=== PATIENT | female | born 1955 | race Caucasian/White ===

== ENCOUNTER 2025-03-24 09:26 | Outpatient (REF) | payer OTHER, SELFPAY ==
--- OUTSIDE RECORDS SUMMARY | 2025-03-19 08:30 | XMS_ITS | Encounter Summary ---
Author Organization [facility] Address [address] [place] [address] Care Team Providers Care Intelligence Officer Name Role Phone Evie Perez MD Primary Care Provider [phone] Reason for Referral * Imaging (Routine) - Pending Review Specialty Diagnoses / Procedures Referred By Contac t Referred To Contact Radiology Diagnoses PAD (peripheral artery disease) (CMS/[facility] V24) Procedures CT Angio Abdominal Aorta w Runoff Gaston Bangura MD [address] [place] [address] Phone: tel: fax: [address] [address] Phone: tel: Referral ID Status Reason Start Date Expiration Date V isits Requested Visits Authorized [id number] Pending Review 03/19/2025 03/19/2026 1 1 Reason for Visit * Reason Comments Peripheral Vascular Disease Encounter Details Date Type Department Care Team (Late st Contact Info) Description 03/19/2025 8:30 AM EDT Office Visit Vascular Surgery - [facility] [address] [place] [id number] Gaston Bangura MD [address] [place] [id number] PAD (peripheral artery disease) (CMS/HCC V24) (Primary Dx) Social History Tobacco Use Types Packs/Day Years Used Date Smoking Tobacco: Every Day Cigarettes Last attempted to quit: 01/10/2022 Smokeless Tobacco: Never Tobacco Cessation:Ready to Q uit: Not Asked; Counseling Given: Not Answered Alcohol Use Standard Drinks/Week Comments Never 0 (1 standard drink = 0.6 oz pur e alcohol) Comments Unknown Sex and Gender Information Value Date Recorded Sex Assigned at Not on file Legal Sex Female 9:43 PM EST Gender Identity Not on file Sexual Orientation Not on file documented as of this encounter Last Filed Vital Signs Vital Sign Reading Time Taken Comments Blood Pressure 110/70 03/19/2025 8:21 AM EDT Pulse 72 03/19/2025 8:21 AM EDT Temperature - - Respiratory Rate 16 03/19/2025 8:21 AM EDT Oxygen Saturation - - Inhaled Oxygen Concentration - - Weight 64 kg (141 lb) 03/19/2025 8:21 AM EDT Height 165.1 cm (5' 5 ) 03/19/2025 8:21 AM EDT Body Mass Index 23.46 03/19/2025 8:21 AM EDT documented in this encounter Progress Notes * Bereket Franco [place] - 03/19/2025 8:30 AM EDT Images from the original note were not included. Serena Marielos Abraham Procedures: Vascular US duplex lower extremity arteries bilateral with ZAY Accession Number: [id number] Date of Study: 03/02/2025 Ordering Provider: Gaston Bangura MD Clinical Indications: peripheral vascular disease Reading Physicians Performing Staff Cardiology: Cecilia Herrera MD Tech: Gena Coburn Patient Information Patient Name Marielos Lyons Legal Sex Female (69 y.o.) Diagnosis Priority: Routine PAD (peripheral artery disease) ([facility] V24) [I73.9 (ICD-10-CM)] PACS Images Show images for Vascular US duplex lower extremity arteries bilateral with ZAY Performing Physician Performing Physician/Midlevel: None Interpretation Summary Show Result ComparisonRight Right EIA has mildly increased velocity without evidence of stenosis. Right IMAGING SERVICES DIRECTOR has 50 to 99% (close to 50%) stenosis. Right proximal SFA has 50 to 99% stenosis. Right distal SFA has increased lumen diameter above doesnot meet diagnosis of aneurysm. Triple vessel runoff in the right calf. Left ankle pressure and ankle-brachial index are mildly reduced. Right ZAY 0.96. Left Left EIA is occluded. Left proximal SFA has blunt flow. Left mid SFA is occluded. Left distal SFA has turbulent flow indicating stenosis. A fem-pop bypass graft is present. Proximal anastomosis has turbulent flow with elevated flow velocity, indicating hemodynamic significant stenosis. Bypass graft is occluded right after proximal anastomosis extending to mid segment. The distal segment has a small lumen with retrograde flow. The distal anastomosis has minimal flow. The proximal popliteal artery has 50 to 99% stenosis with blunt flow in the distal segment. Triple-vessel runoff in the left calf. Left ankle pressure and ankle-brachial index are moderately reduced. Left ZAY 0.59. Compared to previous study of 10/25/2023, left femoropopliteal graft is occluded. The findings was communicated to Dr. Bangura's office. Result History Order Result History Report Procedure Details A davenport scale, color and doppler analysis ultrasound was performed. During the study longitudinal and transverse views were obtained. Pulsed wave doppler was performed. Lower Extremity Arterial Findings Right Lower Arterial Duplex The distal external iliac artery has biphasic flow. The common femoral artery has biphasic flow. The profunda femoris artery has biphasic flow. The proximal superficial femoral artery has biphasic flow. The mid superficial femoral artery has biphasic flow. The distal superficial femoral artery has monophasic flow. The diameter increases from 0.62cm to 1.09cm in the distal superficial femoral artery just above the knee (1.21 x 1.38 x 1.09cm), and decreased down to 0.62cm in the proximal popliteal artery. The popliteal artery has biphasic flow. The anterior tibial artery has biphasic flow. The posterior tibial artery has biphasic flow. The mid peroneal artery has biphasic flow. Right Segmental Pressures Right BP not done due to sensor. Left Lower Arterial Duplex The distal external iliac artery has absent flow. The common femoral artery has monophasic flow at the bypass graft inflow. The profunda femoris artery has monophasic bidirectional flow (26.18cm/s) followed by monophasic turbulent flow(134.15cm/s). The proximal superficial femoral artery has monophasic flow just after the bifurcation followed by occlusion. The mid superficial femoral artery has absent flow. The distal superficial femoral artery has monophasic flow. The proximal popliteal artery is turbulent. The proximal popliteal artery has monophasic flow. The distal popliteal artery has monophasic flow. The anterior tibial artery has blunted monophasic flow. The posterior tibial artery has monophasic flow. The mid peroneal artery has blunted monophasic flow. Left Lower Bypass Graft There is a left femoral to popliteal graft present: proximal yaeaolmtqxv=111.3cm/s (monophasic turbulent flow) proximal= occluded mid= occluded distal= 7.5cm/s (blunted monophasic reversed flow followed by blunted bidirectional flow just before the distal anastomosis) distal anastomosis= 5.9cm/s (blunted monophasic reversed flow) Left Segmental Pressures Left BP= 127/48 Iliac Artery Measurements PSV Rt EIA Prox 220 cm/s Rt EIA Dist 188 cm/s Lt EIA Prox 0 cm/s Lt EIA Dist 0 cm/s Right Lower Arterial Measurements PSV IMAGING SERVICES DIRECTOR Prox 220 cm/s PFA 163 cm/s SFA Prox 339 cm/s SFA Mid 147 cm/s SFA Dist 94 cm/s Pop Prox 94 cm/s Pop Dist 127 cm/s SENIOR LICENSING MANAGER Prox 66 cm/s SENIOR LICENSING MANAGER Mid 62 cm/s SENIOR LICENSING MANAGER Dist 61 cm/s SAHARA Prox 56 cm/s SAHARA Mid 44 cm/s SAHARA Dist 39 cm/s Peroneal Mid 34 cm/s Left Lower Arterial Measurements PSV IMAGING SERVICES DIRECTOR Prox 19 cm/s PFA 134 cm/s SFA Prox 34 cm/s SFA Mid 0 cm/s SFA Dist 121 cm/s Pop Prox 155 cm/s Pop Dist 104 cm/s SENIOR LICENSING MANAGER Prox 19 cm/s SENIOR LICENSING MANAGER Mid 19 cm/s SENIOR LICENSING MANAGER Dist 21 cm/s SAHARA Prox 13 cm/s SAHARA Mid 10 cm/s SAHARA Dist 11 cm/s Peroneal Mid 9 cm/s Segmental Pressure Measurements Right Left Brachial BP 127 mmHg Post Tibial BP 122 mmHg 75 mmHg Dorsalis Pedis BP 117 mmHg 67 mmHg ZAY 0.96 0.59 All Reviewers List YOUNG Mayer on 03/03/2025 10:18 Signed at 1716 EDT * Gaston Bangura MD - 03/19/2025 8:30 AM EDT Images from the original note were not included. PATIENT: Marielos Lyons ENCOUNTER: 03/19/2025 EMRN: [id number] : 1955 PCP: Evie Perez MD CHIEF COMPLAINT: Peripheral Vascular Disease HPI: This is a 69 y.o. female who presents for follow-up of PAD. Vasacular history is 05/02/2022: RIGHT SFA/popliteal endarterectomy 02/07/22: LEFT external iliac artery stent graft, left iliofemoral endarterectomy with bovine pericardial patch angioplasty and left femoral to infrageniculate popliteal artery with reversed greater saphenous vein. 07/31/2023: LEFT iliofemoral bypass with 7 mm Dacron graft (for failed Left EIA stent) 09/04/2023: LEFT groin exploration and washout, exploratory laparotomy, explant of iliofemoral Dacron graft, repair of femoropopliteal vein graft bypass with bovine pericardial patch angioplasty, implant of antibiotic beads and omental flap for infected of Dacron left iliofemoral bypass graft. During her last procedure patient had small remant Dacron, well incorporated and unable to be explanted. She completed a long-term course of IV antibiotics. No growth of organisms on all cultures. All ulcers in her feet have healed. Patient reported significant lifestyle-limiting claudication in the left leg. However, no further revascularization was planned as she did not have critical limb ische ilya. Patient was managed conservatively and followed with imaging. Patient returns today to updated arterial duplex. See findings below.. Claudication develops after climbing 1 flight of stairs. She denies rest pain in her toes, ulcers, gangrene. Denies right leg claudication. Patient has no known history of CHF. Patient had a trial of cilostazol which he subsequently failed after developing diarrhea. Cilostazol discontinued. She was tobacco and nicotine free however she relapsed and is currently smoking 15 cigarettes/day. Patient is on aspirin and Xarelto 2.5 mg p.o. twice daily. She has had no complications related to aspirin and Xarelto. PAST MEDICAL HISTORY: (reviewed and unchanged) Problem List[1] PAST SURGICAL HISTORY: (reviewed and unchanged) Surgical History[2] MEDICATIONS: (reviewed, flow sheet updated) Medications Taking[3] SOCIAL HISTORY: Social History[4] FAMILY HISTORY: Family History[5] ALLERGIES: (reviewed, flow sheet updated) Allergies[6] ROS: GENERAL: No malaise, significant weight loss or fever NECK: No lumps, goiter, pain or significant neck swelling RESPIRATORY: No cough, wheezing or shortness of breath CARDIAC: No chest pain or palpitations GI: No abdominal discomfort MUSCULOSKELETAL: SEE HPI SKIN: No lesions, rash or itching NEURO: No persistent headache, syncope, seizures, weakness or numbness VASCULAR: SEE HPI PHYSICAL EXAM: Vitals: 03/19/25 0821 BP: 110/70 Pulse: 72 Resp: 16 Weight: 64 kg (141 lb) Height: 1.651 m (65 ) General: Alert and oriented x 3, no acute distress, well-nourished HEENT: Normocephalic atraumatic Neck: No JVD Chest: Respiratory effort normal Cardiac: Regular rate rhythm Abdomen: Soft, nontender, nondistended, Midline laparotomy surgical scar well- healed. Left flank retroperitoneal surgical scar well-healed. Extremities: -Right upper extremity: 2+ radial artery pulses palpable. -Left upper extremity: 2+ radial artery pulses palpable. -Right lower extremity: 2+ femoral artery pulse palpable. No palpable popliteal artery pulse. 1+ PTpulse palpable, No DP pulse palpable. No ulcers or gangrene. No edema. Right medial thigh surgical scar well-healed. No ulcers or gangrene. -Left lower extremity: No palpable femoral, DP or PT pulses palpable. No edema. Multiple surgical scars in the groin are healed. Medial calf incision is also well-healed. No ulcers or gangrene. Integumentary: No wounds Neuro: Grossly intact DIAGNOSTIC TESTING: SerenaMarielos Procedures: Vascular US duplex lower extremity arteries bilateral with ZAY Accession Number: [id number] Date of Study: 03/02/2025 Ordering Provider: Gaston Bangura MD Clinical Indications: peripheral vascular disease Reading Physicians Performing Staff Cardiology: Cecilia Herrera MD Tech: Gena Coburn Patient Information Patient Name Marielos Lyons Legal Sex Female (69 y.o.) Diagnosis Priority: Routine PAD (peripheral artery disease) ([facility] V24) [I73.9 (ICD-10-CM)] PACS Images Show images for Vascular US duplex lower extremity arteries bilateral with ZAY Performing Physician Performing Physician/Midlevel: None Interpretation Summary Show Result ComparisonRight Right EIA has mildly increased velocity without evidence of stenosis. Right IMAGING SERVICES DIRECTOR has 50 to 99% (close to 50%) stenosis. Right proximal SFA has 50 to 99% stenosis. Right distal SFA has increased lumen diameter above doesnot meet diagnosis of aneurysm. Triple vessel runoff in the right calf. Left ankle pressure and ankle-brachial index are mildly reduced. Right ZAY 0.96. Left Left EIA is occluded. Left proximal SFA has blunt flow. Left mid SFA is occluded. Left distal SFA has turbulent flow indicating stenosis. A fem-pop bypass graft is present. Proximal anastomosis has turbulent flow with elevated flow velocity, indicating hemodynamic significant stenosis. Bypass graft is occluded right after proximal anastomosis extending to mid segment. The distal segment has a small lumen with retrograde flow. The distal anastomosis has minimal flow. The proximal popliteal artery has 50 to 99% stenosis with blunt flow in the distal segment. Triple-vessel runoff in the left calf. Left ankle pressure and ankle-brachial index are moderately reduced. Left ZAY 0.59. Compared to previous study of 10/25/2023, left femoropopliteal graft is occluded. The findings was communicated to Dr. Bangura's office. Result History Order Result History Report Procedure Details A davenport scale, color and doppler analysis ultrasound was performed. During the study longitudinal and transverse views were obtained. Pulsed wave doppler was performed. Lower Extremity Arterial Findings Right Lower Arterial Duplex The distal external iliac artery has biphasic flow. The common femoral artery has biphasic flow. The profunda femoris artery has biphasic flow. The proximal superficial femoral artery has biphasic flow. The mid superficial femoral artery has biphasic flow. The distal superficial femoral artery has monophasic flow. The diameter increases from 0.62cm to 1.09cm in the distal superficial femoral artery just above the knee (1.21 x 1.38 x 1.09cm), and decreased down to 0.62cm in the proximal popliteal artery. The popliteal artery has biphasic flow. The anterior tibial artery has biphasic flow. The posterior tibial artery has biphasic flow. The mid peroneal artery has biphasic flow. Right Segmental Pressures Right BP not done due to sensor. Left Lower Arterial Duplex The distal external iliac artery has absent flow. The common femoral artery has monophasic flow at the bypass graft inflow. The profunda femoris artery has monophasic bidirectional flow (26.18cm/s) followed by monophasic turbulent flow(134.15cm/s). The proximal superficial femoral artery has monophasic flow just after the bifurcation followed by occlusion. The mid superficial femoral artery has absent flow. The distal superficial femoral artery has monophasic flow. The proximal popliteal artery is turbulent. The proximal popliteal artery has monophasic flow. The distal popliteal artery has monophasic flow. The anterior tibial artery has blunted monophasic flow. The posterior tibial artery has monophasic flow. The mid peroneal artery has blunted monophasic flow. Left Lower Bypass Graft There is a left femoral to popliteal graft present: proximal ttlzbrgrmdw=450.3cm/s (monophasic turbulent flow) proximal= occluded mid= occluded distal= 7.5cm/s (blunted monophasic reversed flow followed by blunted bidirectional flow just before the distal anastomosis) distal anastomosis= 5.9cm/s (blunted monophasic reversed flow) Left Segmental Pressures Left BP= 127/48 Iliac Artery Measurements PSV Rt EIA Prox 220 cm/s Rt EIA Dist 188 cm/s Lt EIA Prox 0 cm/s Lt EIA Dist 0 cm/s Right Lower Arterial Measurements PSV IMAGING SERVICES DIRECTOR Prox 220 cm/s PFA 163 cm/s SFA Prox 339 cm/s SFA Mid 147 cm/s SFA Dist 94 cm/s Pop Prox 94 cm/s Pop Dist 127 cm/s SENIOR LICENSING MANAGER Prox 66 cm/s SENIOR LICENSING MANAGER Mid 62 cm/s SENIOR LICENSING MANAGER Dist 61 cm/s SAHARA Prox 56 cm/s SAHARA Mid 44 cm/s SAHARA Dist 39 cm/s Peroneal Mid 34 cm/s Left Lower Arterial Measurements PSV IMAGING SERVICES DIRECTOR Prox 19 cm/s PFA 134 cm/s SFA Prox 34 cm/s SFA Mid 0 cm/s SFA Dist 121 cm/s Pop Prox 155 cm/s Pop Dist 104 cm/s SENIOR LICENSING MANAGER Prox 19 cm/s SENIOR LICENSING MANAGER Mid 19 cm/s SENIOR LICENSING MANAGER Dist 21 cm/s SAHARA Prox 13 cm/s SAHARA Mid 10 cm/s SAHARA Dist 11 cm/s Peroneal Mid 9 cm/s Segmental Pressure Measurements Right Left Brachial BP 127 mmHg Post Tibial BP 122 mmHg 75 mmHg Dorsalis Pedis BP 117 mmHg 67 mmHg ZAY 0.96 0.59 All Reviewers List YOUNG Mayer on 03/03/2025 10:18 Signed at 1716 [facility] Diagnostic Imaging Department [address] [place], [place] [id number] Patient: MARIELOS LYONS /Age/Sex: 1955 - 68 - F Unit#: [id number] Location/Status: SPDICAT/REG CLI Mnemonic/Ordering Site: CTAAORRUN/SPCT Ordering Physician: EMELINA MINA CT Aorta W Runoff Angiography - 12/25/23743 Report Status:Signed CT aorta and runoff angiography with IV contrast TECHNIQUE: Axial and reformatted images were performed of the abdomen and pelvis following administration of IV contrast.120cc of ISOVUE was administered IV for contrast enhanced images. The examination was performed during arterial phase of enhancement. CT examination was extended through the lower extremities bilaterally. DOSE: CTDIvol: 8.5/13.3mGy. Total exam DLP: 1919.8mGy-cm COMPARISON: CT abdomen and pelvis August 2023. CT aorta and runoff angiography April 2023 INDICATION: Peripheral arterial disease FINDINGS: Vessels: Atherosclerotic disease is noted throughout the abdominal aorta. No aneurysm. Celiac and SMA appear widely patent. NEHEMIAH is present. Plaque causes at least moderate stenosis at the origin of the left renal artery. Right renal arteryappears widely patent. Plaque with minimal stenosis is noted in the right common iliac and external iliac artery. Very short segment of dissection is noted in the distal right external iliac artery without significant stenosis. Previous examination in August showed an occluded left external iliac stent with a patent left common iliac graft that extended into the left groin. There is a small region of outpouching of contrast in the left common iliac artery that may represent a small pseudoaneurysm or small graft remnant. Previously described graft is no longer visualized. The left external iliac stent is again noted and appears occluded. Previous examination noted fluid surrounding the left external iliac graft that is no longer present. Right leg: Minimal stenosis in the right common femoral artery. Profundus is patent. Small region of moderate stenosis in the proximal SFA. At least mild stenosis is noted throughout much of the proximal and mid SFA. Distal portions of the vessel appear more patent consistent with prior endarterectomy changes. Popliteal artery is widely patent. Three-vessel runoff extends to the ankle. Left leg: Previously noted left external iliac graft extending into the left groin is no longer visualized. Minimal remnant contrast extends from the proximal SFA anteriorly that may represent minimal residualoutpouching of the patent graft. The left external iliac artery and common femoral artery are occluded. There is reconstituted flow in the distal common femoral artery via collateral vessels. The profundus is patent. Previously noted fluid collection in the anterior left thigh is no longer visualized. The kaw SFA appears occluded throughout its course. Collateral vessels are noted that provide reconstituted flow within the popliteal artery. Three-vessel flow extends to the ankle. CT abdomen and pelvis: Examination performed during arterial phase which limits evaluation of some organs. Liver: Decreased attenuation the liver suggesting at least mild fatty infiltration. Biliary: Gallbladder appears normal. No biliary dilatation. Pancreas: Pancreas appears within normal limits. No atrophy or ductal dilatation. Spleen: Spleen appears normal. Adrenals: The adrenal glands appear symmetric and normal bilaterally. Kidneys: The kidneys appear normal. No evidence of hydronephrosis. Retroperitoneum: No abnormal lymphadenopathy. Bowel: Bowel appears within normal limits. Normal appendix. Mesentery: Mesentery appears normal. No ascites. Pelvis: Pelvis appears within normal limits. No abnormal lymphadenopathy. Abdominal wall/bones: No significant hernia. Degenerative changes of the spine.. Lung Bases: Minimal basilar atelectasis. IMPRESSION: 1. Significant atherosclerotic disease is noted bilaterally and is detailed fully above. 2. Occlusion of the left SFA with apparent removal of the previously noted left external iliac graft as detailed above. 3. Mild fatty infiltration of the liver. Dictating Physician: NAGA TARIQ MD Electronically Signed by: NAGA TARIQ MD Dic Date/Time: 12/26/23 1822 Sign date/Time: 12/26/23 [id number] Arterial duplex, [facility], 10/25/2023: - Right lower extremity: ZAY 0.87. Biphasic waveforms throughout the right lower extremity except in the proximal SFA which is monophasic waveforms suggestive of a severe stenosis within the right SFA. Three-vessel runoff. - Left lower extremity: ZAY 0.68. Iliac artery was not well-visualized. Monophasic waveforms throughout the entire left lower extremity. Left femoropopliteal bypass was patent and has biphasic waveforms at the proximal anastomosis and monophasic waveforms throughout the remainder of the bypass. Three-vessel runoff. I independently reviewed the studies along with the images. ASSESSMENT: 1. PAD (peripheral artery disease) ([facility] V24) PLAN: 69 y.o. female smoker with type 2 diabetes who unfortunately developed delayed infection of her left iliofemoral DVT on the bypass graft. Patient underwent left groin exploration and washout, exploratory laparotomy, explant of iliofemoral Dacron graft, repair of femoropopliteal vein graft bypass with bovine pericardial patch angioplasty, implant of antibiotic beads and omental flap on 09/04/2023. Swab cultures were negative from the operation despite having intraoperative findings of white milkyfluid. She completed her antibiotic course and remains asymptomatic from infection. Patient is also status post right SFA/popliteal endarterectomy. She currently does not clearly haverest pain in her right foot at night and has lifestyle limiting left calf claudication. She does not have any critical limb ischemia. Patient failed trial of cilostazol. Arterial duplex was reviewed with the patient at length. She does however warrant a repeat CTA aorta with bilateral lower extremity runoff at this time given potential rest pain within her right foot. She should follow-up with CTA in 3 months. She should continue aspirin and Xarelto 2.5 mg p.o. twice daily indefinitely. Patient is smoking three quarters of a pack a day. Smoke cessation was discussed at length. Patientunderstands consequences including limb loss with continued smoking. Patient will pick a quit date and get rid of all her cigarettes. She has a plan for quitting again. We discussed the natural pathophysiology of PAD. Patient to follow-up sooner if symptoms progress and left lower extremity or less likely the right lower extremity. I spent 40 minutes in an encounter with this patient, including time spent with patient, chart review, reviewing diagnostic studies, and documentation. [1] Patient Active Problem List Diagnosis Hyperlipidemia Hypertension Ocular headache Type 2 diabetes mellitus ([facility] V24, [facility] V28) PAD (peripheral artery disease) ([facility] V24) Vascular device, implant, or graft infection or inflammation, subsequent encounter Lump on neck Erythrocytosis Adhesive capsulitis of right shoulder associated with type 2 diabetes mellitus ([facility] V24, [facility] V28) Nontraumatic complete tear of right rotator cuff [2] Past Surgical History: Procedure Laterality Date AORTA - BILATERAL FEMORAL ARTERY BYPASS GRAFT PROCEDURE:FEMORAL ARTERY - POPLITEAL ARTERY BYPASS GRAFT SECTION PROCEDURE: SECTION SECTION N/A PROCEDURE: NV DELIVERY ONLY; COMMENT: X2 COLONOSCOPY N/A PROCEDURE: HISTORICAL COLONOSCOPY OTHER SURGICAL HISTORY N/A PROCEDURE: NV ARTHROSCOPY TEMPOROMANDIBULAR JOINT SURGICAL OTHER SURGICAL HISTORY 01/02/2022 PROCEDURE: NV SLCTV CATHJ 3RD+ ORD SLCTV ABDL PEL/LXTR BRNCH OTHER SURGICAL HISTORY 01/02/2022 PROCEDURE: X-RAY ABDOMINAL AORTA, LEG ARTERIES OTHER SURGICAL HISTORY 01/02/2022 PROCEDURE: X-RAY EXAM OF ARM/LEG ARTERIES OTHER SURGICAL HISTORY 01/02/2022 PROCEDURE: ULTRASOUND GUIDANCE FOR VASCULAR AC OTHER SURGICAL HISTORY Left 02/07/2022 PROCEDURE: NV BYPASS W/VEIN FEMORAL-POPLITEAL OTHER SURGICAL HISTORY Left 02/07/2022 PROCEDURE: NV REVSC OPN/PRQ ILIAC ART W/STNT PLMT & ANGIOPLSTY OTHER SURGICAL HISTORY Left 02/07/2022 PROCEDURE: NV TEAEC W/WO PATCH GRAFT ILIOFEMORAL OTHER SURGICAL HISTORY 03/27/2022 PROCEDURE: NV REVASCULARIZATION ILIAC ARTERY ANGIOP 1ST VSL OTHER SURGICAL HISTORY 03/27/2022 PROCEDURE: NV REVSC OPN/PRG FEM/POP W/ANGIOPLASTY UNI OTHER SURGICAL HISTORY 03/27/2022 PROCEDURE: ULTRASOUND GUIDANCE FOR VASCULAR AC OTHER SURGICAL HISTORY Right 05/02/2022 PROCEDURE: NV TEAEC W/GRAFT POPLITEAL ARTERY OTHER SURGICAL HISTORY 07/30/2023 PROCEDURE: NV SLCTV CATHJ EA 1ST ORD ABDL PEL/LXTR ART BRNCH OTHER SURGICAL HISTORY 07/30/2023 PROCEDURE: X-RAY EXAM OF ARM/LEG ARTERY; COMMENT: X2 OTHER SURGICAL HISTORY 07/30/2023 PROCEDURE: ULTRASOUND GUIDANCE FOR VASCULAR AC OTHER SURGICAL HISTORY Left 07/31/2023 PROCEDURE: NV BYP OTH/THN VEIN ILIOFEMORAL OTHER SURGICAL HISTORY 07/31/2023 PROCEDURE: NV ROPRTJ > 1 MO AFTER ORIGINAL OPRATION OTHER SURGICAL HISTORY 09/04/2023 PROCEDURE: NV EXCISION INFECTED GRAFT ABDOMEN OTHER SURGICAL HISTORY 09/04/2023 PROCEDURE: NV RPR BLOOD VESSEL DIRECT LOWER EXTREMITY OTHER SURGICAL HISTORY 09/04/2023 PROCEDURE: NV OMENTAL FLAP INTRA-ABDOMINAL OTHER SURGICAL HISTORY 09/04/2023 PROCEDURE: NV INSERTION DRUG DELIVERY IMPLANT [3] Outpatient Medications Marked as Taking for the 03/19/25 encounter (Office Visit) with Gaston Bangura MD Medication Sig Dispense Refill aspirin 81 mg EC tablet TAKE 1 TABLET BY MOUTH EVERY DAY 90 tablet 3 blood-glucose meter,continuous (Dexcom G7 Locks Inspector) misc 1 Device by Does not apply route continuous1 Device by Does not apply route continuous1 Device by Does not apply route continuous 3 each 11 blood-glucose sensor (Dexcom G7 Sensor) device Box = Kit = EA USE DIRECTED CHANGE SENSOR EVERY 10 DAYS 3 each 11 glucose blood test strip 1 Strip by In Vitro route 2 times daily glucose blood test strip 1 Strip by In Vitro route as needed HumaLOG KwikPen Insulin 100 unit/mL injection pen BEFORE MEALS DIRECTED PER SLIDING SCALE THREE TIMES A DAY, MAX UP TO 25 UNITS DAILY. 15 mL 1 insulin lispro 100 unit/mL injection Before meals as directed per sliding scale three times a day, max up to 25 units daily pen needle, diabetic (BD Amy 2nd Gen Pen Needle) 32 gauge x 5/32 needle To inject insulin upto 2 times a day 100 each 3 Rybelsus 14 mg tablet TAKE 1 TABLET BY MOUTH EVERY DAY 90 tablet 1 Xarelto 2.5 mg tablet TAKE 1 TABLET BY MOUTH TWICE DAILY 180 tablet 3 [4] Social History Tobacco Use Smoking status: Every Day Current packs/day: 0.00 Types: Cigarettes Last attempt to quit: 01/10/2022 Years since quittin.1 Smokeless tobacco: Never Substance Use Topics Alcohol use: Never Drug use: Never [5] Family History Problem Relation Name Age of Onset Diabetes Mother Diabetes Sister [6] No Known Allergies documented in this encounter Plan of Treatment Upcoming Encounters Date Type Department Care Team (Late st Contact Info) Description 03/31/2025 9:00 AM EST Office Visit Endocrinology - [place] [address] [place] [phone] Ines Orourke MD [address] [place] [address] 06/17/2025 9:15 AM EST Office Visit [facility] Hematology Oncology [address] [place] [phone] Ward Skinner MD [address] [place] [address] 06/18/2025 8:30 AM EST Office Visit Vascular Surgery [facility] [address] [place] [phone] Gaston Bangura MD [address] [place] [phone] Scheduled Orders Name Type Priority Associated Diagnoses Orde r Schedule CT Angio Abdominal Aorta w Runoff Imaging Routine PAD (peripheral artery disease) ([facility] V24) Expected: 05/19/2025, Expires: 03/19/2026 BUN Lab Routine PAD (peripheral artery disease) ([facility] V24) Expected: 03/19/2025, Expires: 03/19/2026 Creatinine Lab Routine PAD (peripheral artery disease) ([facility] V24) Expected: 03/19/2025, Expires: 03/19/2026 documented as of this encounter Visit Diagnoses Diagnosis PAD (peripheral artery disease) ([facility] V24)- Primary Unspecified peripheral vascular disease documented in this encounter Care Teams Intelligence Officer Relationship Specialty Start Date End Date Evie Perez MD [address] [place] [address] PCP - General 12/12/23 documented as of this encounter
--- OUTSIDE RECORDS SUMMARY | 2025-03-24 10:59 | XMS_ITS | Encounter Summary ---
Author Organization [facility] Address [address] [place] [address] Care Team Providers Care Branding Machine Operator Name Role Phone Evie Perez MD Primary Care Provider Encounter Details Date Type Department Care Team ([facility] Contact Info) Description 03/23/2025 Results Follow-Up Adult Medicine [facility] [address] [place], [place] [phone] Evie Perez MD [address] [place] [address] Social History Tobacco Use Types Packs/Day Years Used Date Smoking Tobacco: Every Day Cigarettes Last attempted to quit: 01/10/2022 Smokeless Tobacco: Never Alcohol Use Standard Drinks/Week Comments Never 0 (1 standard drink = 0.6 oz pur e alcohol) Comments Unknown Sex and Gender Information Value Date Recorded Sex Assigned at Not on file Legal Sex Female 9:43 PM EST Gender Identity Not on file Sexual Orientation Not on file documented as of this encounter Plan of Treatment Upcoming Encounters Date Type Department Care Team ([facility] Contact Info) Description 03/31/2025 9:00 AM EST Office Visit [facility] [address], [place] [phone] Ines Orourke MD [address] [place] [phone] 06/17/2025 9:15 AM EST Office Visit [facility] Hematology Oncology [address] [place] [phone] Ward Skinner MD [address] [place] [address] 06/18/2025 8:30 AM EST Office Visit Vascular Surgery - [place] [address] [place] [phone] Gaston Bangura MD [address] [place] [phone] documented as of this encounter Visit Diagnoses Not on filedocumented in this encounter Care Teams Branding Machine Operator Relationship Specialty Start Date End Date Evie Perez MD [address] [place] [address] PCP - General 12/12/23 documented as of this encounter
--- OUTSIDE RECORDS SUMMARY | 2025-03-24 10:59 | XMS_ITS | Clinical Summary ---
Author Organization [facility] Address [address] [place] [address] Care Team Providers Care Customer Orders Clerk Name Role Phone Zari Mora DO Primary Care P rovider Allergies No known active allergies Medications Medication Sig Dispensed Refills Start Date End Date Status clopidogrel (PLAVIX) 75 MG tablet Take 1 tablet (75 mg total) by mouth daily. 0 04/05/2022 Active glipiZIDE (GLUCOTROL) tablet 10 mg Take 1 tablet (10 mg total) by mouth. 0 Active Semaglutide (RYBELSUS PO) Take by mouth. 0 Active ibuprofen 200 MG tablet Take 1 tablet (200 mg total) by mouth every 6 (six) hours as needed for pain. 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 04/17/2022 Nontraumatic complete tear of right rotator cuff 04/17/2022 Impingement syndrome of right shoulder 2 Family History Medical History Relation Name Comments Diabetes Mother Diabetes Sister Relation Name Status Comments Mother Sister Social History Tobacco Use Types Packs/Day Years Used Date Smoking Tobacco: Former Cigarettes Q uit: 01/10/2022 Smokeless Tobacco: Never Tobacco Cessation:Counseling Given: Not Answered Alcohol Use Standard Drinks/Week Comments Not Currently 0 (1 standard drink = 0.6 oz pur e alcohol) Sex and Gender Information Value Date Recorded Sex Assigned at Not on file Gender Identity Not on file Sexual Orientation Not on file Job Start Date Occupation Industry Not on file Not on file Not on file Last Filed Vital Signs Vital Sign Reading Time Taken Comments Blood Pressure - - Pulse - - Temperature - - Respiratory Rate - - Oxygen Saturation - - Inhaled Oxygen Concentration - - Weight 73 kg (161 lb) 06/04/2022 1:33 PM EST Height 167.6 cm (5' 6 ) 06/04/2022 1:33 PM EST Body Mass Index 25.99 06/04/2022 1:33 PM EST Plan of Treatment Health Maintenance Due Date Last Done Comments Hepatitis C Screening 1955 COVID-19 Vaccine (#1) 06/16/1955 Pneumococcal Vaccine (1 of 2 - PCV) 1960 Depression Screening 1966 Preventative Health Evaluation 1972 DTap / Tdap / Td (1 - Tdap) 1973 Colon Cancer Screening (Colonoscopy) 12/15/1999 Breast Cancer Screening (Mammogram) 2004 Shingrix-Zoster Vaccine (1 of 2) 2004 Fall Risk Assessment 12/15/2019 Osteoporosis Screening (DEXA Scan) 12/15/2019 Influenza Vaccine (#1) 2025 RSV Adult > 60+ Yrs or Pregn ant (1 - 1-dose 75+ series) 2029 Hepatitis B Vaccines Aged Out No long er eligible based on patient's age to complete this topic RSV Ped < 20 months Aged Out No longe r eligible based on patient's age to complete this topic Care Teams Customer Orders Clerk Relationship Specialty Start Date End Date Zari Mora DO [address] [place] [address] PCP - General Youth Development Professional 04/06/22
--- OUTSIDE RECORDS SUMMARY | 2025-03-24 10:59 | XMS_ITS | Clinical Summary ---
Author Organization [facility] [employer] Address [address] [address] [place] [address] Care Team Providers Care Wood Cabinet Finisher Name Role Phone No, Pcp RADIOLOGY CT TECHNOLOGIST Primary Care Provider Unavailabl e Immunizations Immunization Administration Dates Next Due Flublok Trivalent Prefilled Syringe (18+ years) 03/25/2019 Flucelvax Trivalent PFS IM; Without Preservative (18+ mos) 03/12/2018 Social History Tobacco Use Types Packs/Day Years Used Date Smoking Tobacco: Never Assessed Comments Unknown Sex and Gender Information Value Date Recorded Sex Assigned at Not on file Legal Sex Female 10:54 AM EDT Gender Identity Not on file Sexual Orientation Not on file Plan of Treatment Health Maintenance Due Date Last Done Comments Colorectal Cancer: COLONOSCO PY Screening every 10 yrs (or Modifier) 1954 Depression: Screening Annual ly using PHQ-2/9 in Adults 18 yrs or above (or HM Modifier)([facility]) 1972 Hepatitis C Virus Infection in Adolescents and Adults: Screening (or Modifier) ([facility]) 1972 SDOH Screening Reminder: Edith negrete for all adults ([facility]) 1972 Tobacco Smoking Cessation: i n Adults excluding Women: Behavioral and Pharmacotherapy Interventions ([facility]) 1972 DTaP/Tdap/Td Vaccines ([facility]) (1 - Tdap) 1973 Colorectal Cancer Screening 45 -75 Yrs (or HM Modifier) 12/15/1999 Colorectal Cancer: FLEXIBLE SIGMOIDOSCOPY Screening every 5 yrs 12/15/1999 Colorectal Cancer: Fecal Imm unochemical Test (FIT) Annually [facility] 12/15/1999 Colorectal Cancer: High-sens itivity gFOBT Screening Annually [facility] 12/15/1999 Colorectal Cancer: Stool Col oguard Screening every 3 yrs 12/15/1999 Colorectal Cancer:CT Colonog maurizio Screening every 5 yrs 12/15/1999 Breast Cancer: Screening Edith uachristine age 50-74 yrs (or HM Modifier)([facility]) 2004 Pneumococcal Vaccination Scr eening: Patients 50+ yrs of age ([facility]) (1 of 1 - PCV) 2004 Zoster/Shingles Vaccine Seri es Screening: Adults aged 18+ yrs (or HM Modifiers)([facility]) (1 of 2) 2004 Osteoporosis Screening to Pr event Fractures: Women aged 65 years+ ([facility]) 12/15/2019 Flu Vaccination: Ages 65+: Y early High Dose Recommended (or Modifier)([facility]) 12/25/2024 03/25/2019, 8 COVID-19 Vaccine Screening: Initial Series and Booster Status ([facility]) (2023- season) 2025 RSV Vaccines (1 - 1-dose 75+ series) 2029 [employer] Not on file Care Teams Wood Cabinet Finisher Relationship Specialty Start Date End Date No, Pcp, RADIOLOGY CT TECHNOLOGIST N/A Do not use PCP - General 03/12/18
--- OUTSIDE RECORDS SUMMARY | 2025-03-24 10:59 | XMS_ITS ---
Author Name [facility] Organization Unknown Care Team Organization Name Specialty Phone Email Start Date End Da te [facility] NULL Primary Care 10/01/2022 01/13/2024 [facility] NULL Primary Care 06/04/2022 01/13/2024 [facility] SARAH TREVINO Primary Care 04/26/2022 01/13/2024 [facility] NULL Primary Care 04/03/2022 01/13/2024
--- OUTSIDE RECORDS SUMMARY | 2025-03-24 10:59 | XMS_ITS | Encounter Summary ---
Author Organization [facility] Address [address] [place] [address] Care Team Providers Care Bark Peeler Name Role Phone Evie Perez MD Primary Care Provider Encounter Details Date Type Department Care Team ([facility] Contact Info) Description 03/03/2025 Results Follow-Up Vascular Surgery - [place] [address] [facility] [address] [place] [phone] Abena Zambrano PA [address] [place] [address] Social History Tobacco Use Types Packs/Day Years [...] Upcoming Encounters Date Type Department Care Team ([facility] Contact Info) Description 03/31/2025 9:00 AM EST Office Visit Endocrinology - [address] [phone] Ines Orourke MD [address] [place] [address] 06/17/2025 9:15 AM EST Office Visit [facility] Hematology Oncology [address] [place] [phone] Ward Skinner MD [address] [place] [address] 06/18/2025 8:30 AM EST Office Visit Vascular Surgery - [place] [address] [place] [phone] Gaston Bangura MD [address] [place] [phone] documented as of this encounter Visit Diagnoses Not on filedocumented in this encounter Care Teams Bark Peeler Relationship Specialty Start Date End Date Evie Perez MD [address] [place] [phone] PCP - General 12/12/23 documented as of this encounter
--- OUTSIDE RECORDS SUMMARY | 2025-03-24 10:59 | XMS_ITS | Clinical Summary ---
Author Organization [address] [place] [address] Address [address] [place] [address] Phone Care Team Providers Care Lens Generator Name Role Phone Evie Perez MD Primary Care Provider Allergies No known active allergies Medications insulin lispro 100 unit/mL injection Before meals as directed per sliding scale three times a day, max up to 25 units daily Active glucose blood test strip 1 Strip by In Vitro route 2 times daily Active glucose blood test strip 1 Strip by In Vitro route as needed Active pen needle, diabetic (BD Amy 2nd Gen Pen Needle) 32 gauge x 5/32 needleIndication s:Type 2 diabetes mellitus with other specified complication, with long-term current use of insulin (CMS/[facility] V24, CMS/[facility] V28) To inject insulin upto 2 times a day 100 each 3 06/01/19 25 Active blood-glucose meter,continuous (Dexcom G7 Follow Up Rep) miscIndications: Type 2 diabetes mellitus with other specified complication, with long-term current use of insulin (CMS/[facility] V24, CMS/HCC V28) 1 Device by Does not apply route continuous1 Device by Does not apply route continuous1 Device by Does not apply route continuous 3 each 06/25/19 25 Active blood-glucose sensor (Dexcom G7 Sensor) deviceIndication s:Type 2 diabetes mellitus with other specified complication, with long-term current use of insulin (CMS/[facility] V24, CMS/[facility] V28) Box = Kit = EA USE DIRECTED CHANGE SENSOR EVERY 10 DAYS 3 each 06/25/19 25 Active Xarelto 2.5 mg tablet TAKE 1 TABLET BY MOUTH TWICE DAILY 180 tablet 3 09/05/19 25 Active Rybelsus 14 mg tablet TAKE 1 TABLET BY MOUTH EVERY DAY 90 tablet 1 09/29/19 25 Active aspirin 81 mg EC tablet TAKE 1 TABLET BY MOUTH EVERY DAY 90 tablet 3 10/31/19 25 Active HumaLOG KwikPen Insulin 100 unit/mL injection penIndications:T ype 2 diabetes mellitus with other specified complication ([facility] V24, [facility] V28) BEFORE MEALS DIRECTED PER SLIDING SCALE THREE TIMES A DAY, MAX UP TO 25 UNITS DAILY. 15 mL 1 01/28/20 25 Active insulin glargine (Lantus Solostar U-100 Insulin) 100 unit/mL (3 mL) injection penIndications:T ype 2 diabetes mellitus with other specified complication ([facility] V24, [facility] V28) INJECT 7UNITS INTO THE SKIN DAILY. 01/28/20 025 Discontinued Active Problems Problem Noted Date Diagnosed Date Lump on neck 08/18/2024 Erythrocytosis 08/18/2024 PAD (peripheral artery disease) ([facility] V24) Vascular device, implant, or graft infection or inflammation, subsequent encounter 04/10/2024 Hyperlipidemia 03/02/2024 Hypertension 03/02/2024 Ocular headache 03/02/2024 Type 2 diabetes mellitus ([facility] V24, [facility] V 28) 03/02/2024 Adhesive capsulitis of right shoulder associated with type 2 diabetes mellitus ([facility] V24, [facility] V28) 04/17/2022 Nontraumatic complete tear of right rotator cuff 04/17/2022 Encounters Date Type Department Care Team Description 03/23/2025 Results Follow-Up Adult Medicine [address] [address] Evie Perez MD 03/19/2025 8:30 AM EDT Office Visit Vascular Surgery - [place] [address] [facility] [address] [place] [address] Gaston Bangura MD PAD (peripheral artery disease) ([facility] V24) (Primary Dx) 03/18/2025 9:00 AM EDT Office Visit [facility] Hematology Oncology [address] [place] [phone] Ward Skinner MD Polycythemia vera ([facility] V24, [facility] V28) (Primary Dx) 03/18/2025 Telephone [facility] Hematology Oncology [address] [place] [phone] Ward Skinner MD 03/18/2025 Telephone [facility] Hematology Oncology [address] [place] [phone] Onofre Tenorio MA 03/12/2025 6:45 AM EDT - 03/12/2025 11:59 PM EDT Hospital Encounter [facility] CT Scan [address] [place] [phone] Encounter for screening for malignant neoplasm of respiratory organs; Nicotine dependence, cigarettes, uncomplicated Discharge Disposition: Home or Self Care 03/03/2025 Results Follow-Up Vascular Surgery - [place] 300 [facility] [address] [place] [address] Abena Zambrano PA 03/02/2025 9:15 AM EDT Ancillary Procedure [facility] - [facility] [address] [facility] [address] [place] [phone] PAD (peripheral artery disease) ([facility] V24) 03/02/2025 Telephone [facility] Cardiology [facility] - [facility] [address] [facility] [address] [place] [phone] Gena Coburn 02/26/2025 9:00 AM EDT Office Visit [facility] Hematology Oncology [address] [place] [phone] Ward Skinner MD Erythrocytosis (Primary Dx) 02/08/2025 Telephone Lung Screening Program - [place] [address] [facility] [address] [place] [phone] Kalani Grissom MA from Last 3 Months Immunizations Immunization Administration Dates Next Due Influenza Quadravalent, 0.5m l (Fluad) 65yo and older 03/08/2021 Influenza Quadravalent, 0.5m l (Fluzone High-dose) 65yo and older 03/09/2022 Influenza trivalent, 0.5mL ( Fluad) 65yo and older 04/10/2024 Influenza, live, intranasal, quadrivalent (FluMist) 2yo to less than 50yo 03/25/2019 Influenza, live, intranasal, trivalent (FluMist) 2yo to less than 50yo 03/12/2018 Pfizer SARS-CoV-2 COVID-19, mRNA, LNP-S, preservative free 03/14/2021,09/03/2020,08/13/2020 Pneumococcal conjugate 20 va lent (Prevnar 20, PCV 20) 2mo and older 01/08/2024 Surgical History Surgery Date Site/Laterality Comments SECTION PROCEDURE: SECTION AORTA - BILATERAL FEMORAL ARTERY BYPASS GRAFT PROCEDURE:FEMORAL ARTERY - POPLITEAL ARTERY BYPASS GRAFT COLONOSCOPY N/A PROCEDURE: HISTORICAL COLONOSCOPY SECTION N/A PROCEDURE: MD DELIVERY ONLY; COMMENT: X2 OTHER SURGICAL HISTORY N/A PROCEDURE: MD ARTHROSCOPY TEMPOROMANDIBULAR JOINT SURGICAL OTHER SURGICAL HISTORY 01/02/2022 PROCEDURE: MD SLCTV CATHJ 3RD+ ORD SLCTV ABDL PEL/LXTR BRNCH OTHER SURGICAL HISTORY 01/02/2022 PROCEDURE: X-RAY ABDOMINAL AORTA, LEG ARTERIES OTHER SURGICAL HISTORY 01/02/2022 PROCEDURE: X-RAY EXAM OF ARM/LEG ARTERIES OTHER SURGICAL HISTORY 01/02/2022 PROCEDURE: ULTRASOUND GUIDANCE FOR VASCULAR AC OTHER SURGICAL HISTORY 02/07/2022 Left PROCEDURE: MD BYPASS W/VEIN FEMORAL-POPLITEAL OTHER SURGICAL HISTORY 02/07/2022 Left PROCEDURE: MD REVSC OPN/PRQ ILIAC ART W/STNT PLMT & ANGIOPLSTY OTHER SURGICAL HISTORY 02/07/2022 Left PROCEDURE: MD TEAEC W/WO PATCH GRAFT ILIOFEMORAL OTHER SURGICAL HISTORY 03/27/2022 PROCEDURE: MD REVASCULARIZATION ILIAC ARTERY ANGIOP 1ST VSL OTHER SURGICAL HISTORY 03/27/2022 PROCEDURE: MD REVSC OPN/PRG FEM/POP W/ANGIOPLASTY UNI OTHER SURGICAL HISTORY 03/27/2022 PROCEDURE: ULTRASOUND GUIDANCE FOR VASCULAR AC OTHER SURGICAL HISTORY 05/02/2022 Right PROCEDURE: MD TEAEC W/GRAFT POPLITEAL ARTERY OTHER SURGICAL HISTORY 07/30/2023 PROCEDURE: MD SLCTV CATHJ EA 1ST ORD ABDL PEL/LXTR ART BRNCH OTHER SURGICAL HISTORY 07/30/2023 PROCEDURE: X-RAY EXAM OF ARM/LEG ARTERY; COMMENT: X2 OTHER SURGICAL HISTORY 07/30/2023 PROCEDURE: ULTRASOUND GUIDANCE FOR VASCULAR AC OTHER SURGICAL HISTORY 07/31/2023 Left PROCEDURE: MD BYP OTH/THN VEIN ILIOFEMORAL OTHER SURGICAL HISTORY 07/31/2023 PROCEDURE: MD ROPRTJ > 1 MO AFTER ORIGINAL OPRATION OTHER SURGICAL HISTORY 09/04/2023 PROCEDURE: MD EXCISION INFECTED GRAFT ABDOMEN OTHER SURGICAL HISTORY 09/04/2023 PROCEDURE: MD RPR BLOOD VESSEL DIRECT LOWER EXTREMITY OTHER SURGICAL HISTORY 09/04/2023 PROCEDURE: MD OMENTAL FLAP INTRA-ABDOMINAL OTHER SURGICAL HISTORY 09/04/2023 PROCEDURE: MD INSERTION DRUG DELIVERY IMPLANT Medical History Medical History Date Comments Diabetes mellitus (CMS/[facility] V 24, [facility] V28) DX:Diabetes mellitus (HCC) Peripheral vascular disease (CMS/HCC V24) DX:Peripheral vascular disea se (HCC) Type 2 diabetes mellitus (CM S/HCC V24, CMS/HCC V28) 08/11/2021 DX:Type 2 diabetes mellitus (HCC) Hypertension 08/11/2021 DX:Hypertension Ocular headache 08/11/2021 DX:Ocular headac he Family History Medical History Relation Name Comments [...] on file Sexual Orientation Not on file Obstetrics History Last Filed Vital Signs Vital Sign Reading Time Taken Comments Blood Pressure 110/70 03/19/2025 8:21 AM EDT Pulse 72 03/19/2025 8:21 AM EDT Temperature 36.8 C (98.2 F) 03/18/2025 8:53 AM EDT Respiratory Rate 16 03/19/2025 8:21 AM EDT Oxygen Saturation 100% 03/18/2025 8:53 AM EDT Inhaled Oxygen Concentration - - Weight 64 kg (141 lb) 03/19/2025 8:21 AM EDT Height 165.1 cm (5' 5 ) 03/19/2025 8:21 AM EDT Body Mass Index 23.46 03/19/2025 8:21 AM EDT Plan of Treatment Upcoming Encounters Date Type Department Care Team (Late st Contact Info) Description 03/31/2025 9:00 AM EST Office Visit Endocrinology [place] [address] [place] [phone] Ines Orourke MD [address] [place] [address] 06/17/2025 9:15 AM EST Office Visit [facility] Hematology Oncology [address] [place] [phone] Ward Skinner MD [address] [place] [address] 06/18/2025 8:30 AM EST Office Visit Vascular Surgery - [place] [address] [place] [phone] Gaston Bangura MD [address] [place] [phone] Health Maintenance Due Date Last Done Comments Breast Cancer Screening 1955 Colorectal Cancer Screening: Colonoscopy 1955 DTaP,Tdap,and Td Vaccines (1 - Tdap) 1973 RSV Immunization Adult Patients (1 - Risk 50-74 years 1-dose series) 2004 Zoster Vaccines (1 of 2) 2004 Osteoporosis Screening (Bone Density Screening) 07/02/2019 Social Influencers of Health Screening 07/02/2019 Depression Screening 05/27/2024 01/08/2024 Diabetes: Annual Foot Exam 01/07/2025 01/08/2024 Diabetes: Annual Retina Eye Exam 01/07/2025 01/08/2024 Falls Risk Assessment 01/07/2025 01/08/2024 COVID-19 Vaccine ( season) 2025 03/14/2021, 09/03/2020, 08/13/2020 Influenza Vaccine (#1) 2025 , 03/09/2022, 03/08/2021, Additional history exists Diabetes: Blood Sugar Control Test (HGBA1C) 06/05/2025 12/03/2024, 08/14/2024, 04/03/2024, Additional history exists Diabetes: Annual Urine Albumin-Creatinine Ratio (uACR) 12/03/2025 12/03/2024, 08/14/2024, 05/08/2023 Diabetes: Annual GFR (Glomerular Filtration Rate) 12/03/2025 12/03/2024, 08/14/2024 Hypertension/CHF/CAD Annual BMP Blood Test 12/03/2025 12/03/2024, 08/14/2024 Cholesterol Screening (Lipid Panel) 12/03/2029 12/03/2024, 08/14/2024, 04/03/2024, Additional history exists Pneumococcal Vaccine: 50+ Years Completed 01/08/2024 Hepatitis C Screening Completed 04/03/2024 HIB Vaccines Aged Out No longer eligi ble based on patient's age to complete this topic HPV Vaccines Aged Out No longer eligi ble based on patient's age to complete this topic Hepatitis A Vaccines Aged Out No long er eligible based on patient's age to complete this topic Hepatitis B Vaccines Aged Out No long er eligible based on patient's age to complete this topic IPV Vaccines Aged Out No longer eligi ble based on patient's age to complete this topic MMR Vaccines Aged Out No longer eligi ble based on patient's age to complete this topic Meningococcal ACWY Vaccine Aged Out N o longer eligible based on patient's age to complete this topic Meningococcal B Vaccine Aged Out No l onger eligible based on patient's age to complete this topic RSV Immunization Patients Under 20 months Aged Out No longer eligible based on patient's age to complete this topic Varicella Vaccines Aged Out No longer eligible based on patient's age to complete this topic Procedures Procedure Name Priority Date/Time Associated Diagnosis Comments CT LUNG SCREENING Routine 03/12/2025 7:1 4 AM EDT Encounter for screening for malignant neoplasm of respiratory organs Nicotine dependence, cigarettes, uncomplicated VAS US DUPLEX LOWER EXT ARTERIES BILAT WITH ZAY Routine 03/02/2025 9:43 AM EDT PAD (peripheral artery disease) ([facility] V24) CBC WITH AUTO DIFFERENTIAL Routine 02/26/2025 9:18 AM EDT Erythrocytosis RETICULOCYTE COUNT Routine 02/26/2025 9: 18 AM EDT Erythrocytosis ERYTHROPOIETIN Routine 02/26/2025 9:18 AM EDT Erythrocytosis CBC AND DIFFERENTIAL Routine 02/26/2025 9:18 AM EDT Erythrocytosis JAK2 GENE, V617F MUTATION, QUANTITATIVE, MOLECULAR STUDY Routine 02/26/2025 9:18 AM EDT Erythrocytosis MICROALBUMIN CREATININE URINE RATIO Routine 12/03/2024 7:40 AM EDT Type 2 diabetes mellitus with diabetic neuropathy, with long-term current use of insulin ([facility] V24, CMS/[facility] V28) COMPREHENSIVE METABOLIC PANEL Routine 12/03/2024 7:40 AM EDT Type 2 diabetes mellitus with diabetic neuropathy, with long-term current use of insulin ([facility] V24, CMS/[facility] V28) HEMOGLOBIN A1C Routine 12/03/2024 7:40 AM EDT Type 2 diabetes mellitus with diabetic neuropathy, with long-term current use of insulin ([facility] V24, CMS/HCC V28) LIPID PANEL WITH REFLEX TO DIRECT LDL Routine 12/03/2024 7:40 AM EDT Type 2 diabetes mellitus with diabetic neuropathy, with long-term current use of insulin ([facility] V24, CMS/[facility] V28) Hyperlipidemia, unspecified hyperlipidemia type HEPATITIS C ANTIBODY Routine 04/03/2024 9:30 AM EST Hyperlipidemia Hypertension Type 2 diabetes mellitus (CMS/HCC V24, CMS/[facility] V28) Routine general medical examination at a health care facility DEPRESSION SCREENING Routine 01/08/2024 FALLS RISK ASSESSMENT Routine 01/08/2024 DIABETES EYE EXAM Routine 01/08/2024 DIABETES FOOT EXAM Routine 01/08/2024 from Last 3 Months or Most Recently Relevant to Health Maintenance Results * CT Lung Screening (03/12/2025 7:14 AM EDT) Anatomical Region Laterality Modality Chest Computed Tomogra phy 03/18/2025 9:29 AM EDT Impressions 03/18/2025 9:40 AM EDT Lung RADS 2. Guidelines recommend repeat low-dose screening CT in 12 months. -------- FINAL REPORT -------- Dictated By: Bereket Guardado Dictated Date: 03/18/2025 09:29 ET Assigned Physician: Bereket Guardado Reviewed and Electronically Signed By: Bereket Guardado Signed Date: 03/18/2025 09:40 ET Workstation ID: [id number] Transcribed By: Self Edit Transcribed Date: 03/18/2025 09:29 ET Narrative 03/18/2025 9:40 AM EDT PROCEDURE: Low-dose CT of the chest without intravenous contrast. TECHNIQUE: Low-dose CT of the chest without intravenous contrast administration. Coronal and sagittal reformats and MIP reconstructions were created. Dose length product: 106 mGy-cm. HISTORY: Lung cancer screening, >=20 pk yr current smoker (Age 50-80y) COMPARISON: 03/11/2024. FINDINGS: Lungs/pleura: The central airways are clear and normal in caliber. Stable 5 x 3 mm nodule in the anterior periphery of the right middle lobe, series 3 image 145. Stable 3 mm nodule in the medial left lower lobe, series 3 image 105. Scattered benign fissural nodules, also unchanged. Mediastinum/lena: No mediastinal mass or lymphadenopathy. No appreciable hilar lymphadenopathy on limited noncontrast evaluation. Vasculature: Normal caliber pulmonary arteries. Mild atherosclerotic calcifications of the aorta and great vessels. Cardiac: Normal heart size. Minimal coronary artery calcification. Chest wall: No axillary or supraclavicular lymphadenopathy. Limited abdomen: There is a stable low-attenuation lesion in the inferior left hepatic lobe, probably a cyst but too small for definitive characterization. Bones: Mild degenerative changes of the spine and shoulders. Procedure Note Bereket Guardado MD - 03/18/2025 PROCEDURE: Low-dose CT of the chest without intravenous contrast. TECHNIQUE: Low-dose CT of the chest without intravenous contrastadministration. Coronal and sagittal reformats and MIP reconstructionswere created. Dose length product: 106 mGy-cm. HISTORY: Lung cancer screening, >=20 pk yr current smoker (Age 50-80y) COMPARISON: 03/11/2024. FINDINGS: Lungs/pleura: The central airways are clear and normal in caliber. Stable 5 x 3 mm nodule in the anterior periphery of the right middle lobe,series 3 image 145. Stable 3 mm nodule in the medial left lower lobe, series 3 image 105. Scattered benign fissural nodules, also unchanged. Mediastinum/lena: No mediastinal mass or lymphadenopathy. No appreciablehilar lymphadenopathy on limited noncontrast evaluation. Vasculature: Normal caliber pulmonary arteries. Mild atheroscleroticcalcifications of the aorta and great vessels. Cardiac: Normal heart size. Minimal coronary artery calcification. Chest wall: No axillary or supraclavicular lymphadenopathy. Limited abdomen: There is a stable low-attenuation lesion in the inferiorleft hepatic lobe, probably a cyst but too small for definitivecharacterization. Bones: Mild degenerative changes of the spine and shoulders. IMPRESSION: Lung RADS 2. Guidelines recommend repeat low-dose screening CT in 12months. -------- FINAL REPORT -------- Dictated By: Bereket Guardado Dictated Date: 03/18/2025 09:29 ET Assigned Physician: Bereket Guardado Reviewed and Electronically Signed By: Bereket Guardado Signed Date: 03/18/2025 09:40 ET Workstation ID: [id number] Transcribed By: Self Edit Transcribed Date: 03/18/2025 09:29 ET us Rosendo Gardner MD IMG CT PROCEDURES Final Result * Vascular US duplex lower extremity arteries bilateral with ZAY (03/02/2025 9:43 AM EDT) Left Dist External Iliac PSV 0 cm/s [facility] Left Prox External Iliac PSV 0 cm/s CV [facility] Left AT dist sys PSV 11 cm/s CV [facility] Left AT mid sys PSV 10 cm/s CV VAS LAB Left AT prox sys PSV 13 cm/s CV VAS LAB Left TAR POT WORKER prox sys PSV 19 cm/s CV VAS LAB Left mid peroneal sys PSV 9 cm/s CV VAS LAB Left popliteal dist sys PSV 104 cm/s CV VAS LAB Left popliteal prox sys PSV 155 cm/s CV VAS LAB Left PT dist sys PSV 21 cm/s CV VAS LAB Left PT mid sys PSV 19 cm/s CV VAS LAB Left PT prox sys PSV 19 cm/s CV VAS LAB Left super femoral dist sys PSV 121 cm/s CV VAS LAB Left super femoral mid sys PSV 0 cm/s CV VAS LAB Left super femoral prox sys PSV 34 cm/s CV VAS LAB Right Dist External Iliac PSV 188 cm/s CV VAS LAB Right Prox External Iliac PSV 220 cm/s CV VAS LAB Right AT dist sys PSV 39 cm/s CV VAS LAB Right AT mid sys PSV 44 cm/s CV VAS LAB Right AT prox sys PSV 56 cm/s CV VAS LAB Right TAR POT WORKER prox sys PSV 220 cm/s CV VAS LAB Right mid peroneal sys PSV 34 cm/s CV VAS LAB Right popliteal dist sys PSV 127 cm/s CV VAS LAB Right popliteal prox sys PSV 94 cm/s CV VAS LAB Right PT dist sys PSV 61 cm/s CV VAS LAB Right PT mid sys PSV 62 cm/s CV VAS LAB Right PT prox sys PSV 66 cm/s CV VAS LAB Right profunda sys PSV 163 cm/s CV VAS LAB Right super femoral dist sys PSV 94 cm/s CV V[facility] LAB Right super femoral mid sys PSV 147 cm/s CV V[facility] LAB Right super femoral prox sys PSV 339 cm/s CV V[facility] LAB Left profunda sys PSV 134 cm/s CV V[facility] LAB Left arm BP 127 mmHg CV V[facility] Right posterior tibial 122 mmHg CV V[facility] Right Dorsalis Pedis 117 mmHg CV V[facility] LAB Right ZAY 0.96 CV V[facility] Left posterior tibial 75 mmHg CV [facility] Left Dorsalis Pedis 67 mmHg CV [facility] Left ZAY 0.59 CV VAS LAB Anatomical Region Laterality Modality Vascular, Abdomen Ultrasound Narrative 03/02/2025 5:16 PM EDT Right Right EIA has mildly increased velocity without evidence of stenosis. Right TAR POT WORKER has 50 to 99% (close to 50%) stenosis. Right proximal SFA has 50 to 99% stenosis. Right distal SFA has increased lumen diameter above does not meet diagnosis of aneurysm. Triple vessel runoff [...] findings was communicated to Dr. Bangura's office. Right ZAY Right BP not done due to sensor. Left ZAY Left BP= 127/48 Left Lower Bypass Graft There is a left femoral to popliteal graft present: proximal vjuvsenihkj=111.3cm/s (monophasic turbulent flow) proximal= occluded mid= occluded distal= 7.5cm/s (blunted monophasic reversed flow followed by blunted bidirectional flow just before the distal anastomosis) distal anastomosis= 5.9cm/s (blunted monophasic reversed flow) Right Lower Arterial Duplex The distal external [...] The mid peroneal artery has biphasic flow. Left Lower Arterial Duplex The distal external [...] mid peroneal artery has blunted monophasic flow. Bilingual Administrative Assistant Details A davenport scale, color and doppler analysis ultrasound was performed. During the study longitudinal and transverse views were obtained. Pulsed wave doppler was performed. us Gaston Bangura MD CV VASCULAR PROCEDURES Final Re sult * (ABNORMAL) JAK2 gene, V617F mutation, quantitative, molecular study (02/26/2025 9:18 AM EDT) Pathologist [facility] JAK2 (V617F) Mutation DETECTED( A) Not detected 03/05/2025 1:19 PM EDT [facility] WBC Percent with V617F Mutation 0.6(H) <0.1 % 03/05/2025 1:19 PM EDT [facility] Comment: This procedure uses real-time polymerase chain reaction amplification and detection to quantify the percentage of white blood cells containing the V617F (G>T at position 617) point mutation in the autoinhibitory pseudokinase domain of the JAK2 protein. The lower limit of quantitation is 0.1% (1 in 1000 cells). A Not detected result does not preclude the presence of this or another point mutation in this gene. This test uses commercial reagents that have not been approved or cleared by the FDA. The FDA has determined that such clearance or approval is not necessary. The performance characteristics of this procedure were determined by [facility]. This test is performed pursuant to a license agreement with [employer] Test performed at [facility], [address] , [place] [address] Mary Emanuel MD, PhD - Ear Flap Binder Blood Venous blood specimen / Unknown Venipuncture / Unknown 02/26/2025 9:18 AM EDT 02/26/2025 11:30 AM EDT Ward Skinner MD LAB MOLECULAR DIAGNOSTICS OR DERABLES Final Result [facility] [address] [place] [address] * (ABNORMAL) CBC auto differential (02/26/2025 9:18 AM EDT) WBC 9.9 4.8 - 10.8 K/mcL LAB HEMETOLOGY METHOD 02/26/2025 11:40 AM EDT [facility] RBC 5.90(H) 3.80 - 4.80 M/mcL LAB HEMETOLOGY METHOD 02/26/2025 11:40 AM EDT [facility] Hemoglobin 17.3(H) 11.5 - 16.0 g/dL LAB HEMETOLOGY METHOD 02/26/2025 11:40 AM EDT [facility] Hematocrit 54.2(H) 35.0 - 47.0 % LAB HEMETOLOGY METHOD 02/26/2025 11:40 AM EDT [facility] MCV 92.5 79.0 - 98.0 FL LAB HEMETOLOGY METHOD 02/26/2025 11:40 AM EDT [facility] MCH 29.5 27.0 - 32.0 pcg LAB HEMETOLOGY METHOD 02/26/2025 11:40 AM [facility] MCHC 31.9(L) 32.0 - 37.0 g/dL LAB HEMETOLOGY METHOD 02/26/2025 11:40 AM [facility] RDW 14.7 11.0 - 15.0 % LAB HEMETOLOGY METHOD 02/26/2025 11:40 AM [facility] Platelets 379 130 - 400 K/mcL LAB HEMETOLOGY METHOD 02/26/2025 11:40 AM [facility] MPV 10.9 7.0 - 11.0 FL LAB HEMETOLOGY METHOD 02/26/2025 11:40 AM [facility] NRBC 0.0 <1.0 % LAB HEMETOLOGY METHOD 02/26/2025 11:40 AM [facility] NRBC Absolute 0.00 <0.10 K/mcL LAB HEMETOLOGY METHOD 02/26/2025 11:40 AM [facility] Neutrophils Relative 68.3 % LAB HEMETOLOGY METHOD 02/26/2025 11:40 AM [facility] [facility] Lymphocytes Relative 20.7 % LAB HEMETOLOGY METHOD 02/26/2025 11:40 AM [facility] Monocytes Relative 8.5 % LAB HEMETOLOGY METHOD 02/26/2025 11:40 AM [facility] Eosinophils Relative 1.0 % LAB HEMETOLOGY METHOD 02/26/2025 11:40 AM [facility] Basophils Relative 1.3 % LAB HEMETOLOGY METHOD 02/26/2025 11:40 AM [facility] Immature Granulocytes Relative 0.2 % LAB HEMETOLOGY METHOD 02/26/2025 11:40 AM [facility] Neutrophils Absolute 6.74 1.50 - 7.00 K/mcL LAB HEMETOLOGY METHOD 02/26/2025 11:40 AM EDT [facility] Lymphocytes Absolute 2.04 1.00 - 5.00 K/mcL LAB HEMETOLOGY METHOD 02/26/2025 11:40 AM EDT [facility] Monocytes Absolute 0.84 0.20 - 1.00 K/mcL LAB HEMETOLOGY METHOD 02/26/2025 11:40 AM EDT [facility] Eosinophils Absolute 0.10 0.00 - 0.50 [facility] HEMETOLOGY METHOD 02/26/2025 11:40 AM EDT [facility] Basophils Absolute 0.13 0.00 - 0.20 K/mcL LAB HEMETOLOGY METHOD 02/26/2025 11:40 AM EDT [facility] Immature Granulocytes Absolute 0.02 0.00 - 0.03 [facility] HEMETOLOGY METHOD 02/26/2025 11:40 AM EDT [facility] Blood Venous blood specimen / Unknown Venipuncture / Unknown 02/26/2025 9:18 AM EDT 02/26/2025 11:30 AM EDT Ward Skinner MD LAB BLOOD ORDERABLES Final R esult [facility] [address] [place] [address], * Erythropoietin (02/26/2025 9:18 AM EDT) Erythropoietin 5.3 2.6 - 18.5 mIU/mL 03/01/2025 7:46 PM EDT [facility] Comment: Test performed at [facility], [address], [place] [address] Mary Emanuel MD, PhD - Ear Flap Binder Blood Venous blood specimen / Unknown Venipuncture / Unknown 02/26/2025 9:18 AM EDT 02/26/2025 11:30 AM EDT us Ward Skinner MD LAB BLOOD ORDERABLES Final R esult [facility] [address] [place] [address] * (ABNORMAL) Reticulocyte count (02/26/2025 9:18 AM EDT) Retic Ct Abs 0.110(H) 0.030 - 0.090 M/mcL LAB HEMETOLOGY METHOD 02/26/2025 11:40 AM EDT [facility] Retic Ct Pct 1.8(H) 0.7 - 1.7 % LAB HEMETOLOGY METHOD 02/26/2025 11:40 AM EDT [facility] Immature Retic Fract 10.7 2.3 - 15.9 % LAB HEMETOLOGY METHOD 02/26/2025 11:40 AM EDT [facility] Reticulocyte Hemoglobin 32.7 >29.0 pcg LAB HEMETOLOGY METHOD 02/26/2025 11:40 AM EDT [facility] Blood Venous blood specimen / Unknown Venipuncture / Unknown 02/26/2025 9:18 AM EDT 02/26/2025 11:30 AM EDT us Ward Skinner MD LAB BLOOD ORDERABLES Final R esult [facility] [address] [place] [address], * (ABNORMAL) Lipid panel with reflex to direct LDL (12/03/2024 7:40 AM EDT) Cholesterol 222(H) 0 - 200 mg/dL LAB CHEMISTRY METHOD 12/03/2024 11:17 AM EDT [facility] Triglycerides 113 0 - 150 mg/dL LAB CHEMISTRY METHOD 12/03/2024 11:17 AM EDT [facility] HDL 58 >=40 mg/dL LAB CHEMISTRY METHOD 12/03/2024 11:17 AM EDT [facility] LDL Calculated 141(H) 0 - 100 mg/dL LAB CHEMISTRY METHOD 12/03/2024 11:17 AM EDT [facility] VLDL Cholesterol Ray 22.6 mg/dL LAB CHEMISTRY METHOD 12/03/2024 11:17 AM EDT [facility] Non HDL Chol. (LDL+VLDL) 164(H) <145 mg/dL LAB CHEMISTRY METHOD 12/03/2024 11:17 AM EDT [facility] Chol/HDL Ratio 3.8 0.0 - 4.4 LAB CHEMISTRY METHOD 12/03/2024 11:17 AM EDT [facility] Blood Venous blood specimen / Unknown Venipuncture / Unknown 12/03/2024 7:40 AM EDT 12/03/2024 7:40 AM EDT us Evie Perez MD LAB BLOOD ORDERABLES Final Result [facility] [address] [place] [address], * (ABNORMAL) Microalbumin creatinine urine ratio (12/03/2024 7:40 AM EDT) Creatinine, Urine 15.0 mg/dL LAB CHEMISTRY METHOD 12/03/2024 12:21 PM T [facility] Microalb, Ur <5.0 0.0 - 29.0 mg/L LAB CHEMISTRY METHOD 12/03/2024 12:21 PM T [facility] Microalb/Creat Ratio <33(H) <30 mg/g creat LAB CHEMISTRY METHOD 12/03/2024 12:21 PM EDT [facility] Urine Urine specimen obtained by clean catch procedure / Unknown Non-blood Collection / Unknown 12/03/2024 7:40 AM EDT 12/03/2024 7:40 AM EDT Evie Perez MD LAB URINE ORDERABLES Final Result Performing Organization Address City/[facility]/ZIP Co de Phone Number [facility] [address] [place] [address], [place] [phone] * (ABNORMAL) Hemoglobin A1c (12/03/2024 7:40 AM EDT) Pathologist [facility] Hemoglobin A1C 7.1(H) <6.5 % LAB CHEMISTRY METHOD 12/03/2024 11:51 AM EDT [facility] Mean Bld Glu Estim. 157 mg/dL LAB CHEMISTRY METHOD 12/03/2024 11:51 AM EDT [facility] Blood Venous blood specimen / Unknown Venipuncture / Unknown 12/03/2024 7:40 AM EDT 12/03/2024 7:40 AM EDT us Evie Perez MD LAB BLOOD ORDERABLES Final Result [facility] [address] [place] [address], [place] [phone] * (ABNORMAL) Comprehensive metabolic panel (12/03/2024 7:40 AM EDT) Pathologist [facility] Sodium 136 133 - 145 mmol/L LAB CHEMISTRY METHOD 12/03/2024 11:17 AM EDT [facility] Potassium 4.5 3.5 - 5.5 mmol/L LAB CHEMISTRY METHOD 12/03/2024 11:17 AM EDT [facility] Chloride 99 96 - 110 mmol/L LAB CHEMISTRY METHOD 12/03/2024 11:17 AM EDT [facility] CO2 29 21 - 32 mmol/L LAB CHEMISTRY METHOD 12/03/2024 11:17 AM EDT [facility] Anion Gap 8 3 - 11 LAB CHEMISTRY METHOD 12/03/2024 11:17 AM [facility] Glucose 133(H) 70 - 100 mg/dL LAB CHEMISTRY METHOD 12/03/2024 11:17 AM [facility] BUN 9 5 - 25 mg/dL LAB CHEMISTRY METHOD 12/03/2024 11:17 AM [facility] Creatinine 0.92 0.50 - 1.10 mg/dL LAB CHEMISTRY METHOD 12/03/2024 11:17 AM [facility] eGFR 68 >=60 mL/min/1. 73m2 LAB CHEMISTRY METHOD 12/03/2024 11:17 AM [facility] Comment:Calculation based on the Chronic Kidney Disease Epidemiology Collaboration (CKD-EPI) equation refit without adjustment for race. BUN/Creatinine Ratio 9.8 LAB CHEMISTRY METHOD 12/03/2024 11:17 AM [facility] Calcium 9.9 8.5 - 10.5 mg/dL LAB CHEMISTRY METHOD 12/03/2024 11:17 AM [facility] AST (SGOT) 11 10 - 42 unit/L LAB CHEMISTRY METHOD 12/03/2024 11:17 AM [facility] ALT (SGPT) 20 10 - 60 unit/L LAB CHEMISTRY METHOD 12/03/2024 11:17 AM [facility] Alkaline Phosphatase 76 42 - 121 unit/L LAB CHEMISTRY METHOD 12/03/2024 11:17 AM [facility] Total Protein 7.1 6.0 - 8.0 g/dL LAB CHEMISTRY METHOD 12/03/2024 11:17 AM [facility] Albumin 3.9 3.2 - 5.0 g/dL LAB CHEMISTRY METHOD 12/03/2024 11:17 AM [facility] Total Bilirubin 0.3 0.0 - 1.4 mg/dL LAB CHEMISTRY METHOD 12/03/2024 11:17 AM EDT [facility] Blood Venous blood specimen / Unknown Venipuncture / Unknown 12/03/2024 7:40 AM EDT 12/03/2024 7:40 AM EDT Evie Perez MD LAB BLOOD ORDERABLES Final Result [facility] [address] [place] [address], * Hepatitis C antibody (04/03/2024 9:30 AM EST) [facility] Hepatitis C Antibody Negative Negative LAB CHEMISTRY METHOD 04/03/2024 1:17 PM EST [facility] Blood Venous blood specimen / Unknown Venipuncture / Unknown 04/03/2024 9:30 AM EST 04/03/2024 9:30 AM EST Evie Perez MD LAB BLOOD ORDERABLES Final Result [facility] [address] [place] [address], * Falls Risk Assessment (01/08/2024) [facility] Falls Risk Assessment abstracted Historical Provider HEALTH MAINTENANCE Final Result * Depression Screening (01/08/2024) [facility] HM Depression Screening abstracted Historical Provider HEALTH MAINTENANCE Final Result * Diabetes Foot Exam (01/08/2024) [facility] Diabetes: Annual Foot Exam abstracted Historical Provider HEALTH MAINTENANCE Final Result * Diabetes Eye Exam (01/08/2024) [facility] Diabetes: Annual Retina Eye Exam abstracted Historical Provider HEALTH MAINTENANCE Final Result from Last 3 Months or Most Recently Relevant to Health Maintenance Insurance * Guarantor: Marielos Miller Account Type Relation to Patient Date of Phone Billing Address Personal/Family Self 1955 [address] [place] [address] [employer] DOMESTIC Member Subscriber Plan / Payer (Ef fective 2023-Present) Name:PAULMARIELOS Abraham Relation to Subscriber:Spouse Name:MATTHEW MILLER Date of :1954 (Home) Address: [address] [place] [address] Payer ID:[id number] Type:Not on file Address: [address] [place] [address] MEDICARE Care Teams Lens Generator Relationship Specialty Start Date End Date Evie Perez MD [address] [place] [address] PCP - General 12/12/23
== END 2025-03-24 09:27 | disposition home or self-care (01) ==
LOC: HO.BBR 09:26
PROVIDERS: Visit Provider Internal Medicine
DX: D45 Polycythemia vera (principal)
CPT/HCPCS: 85018; 99195

== ENCOUNTER 2025-04-21 10:34 | Outpatient (REF) | payer OTHER, SELFPAY ==
--- OUTSIDE RECORDS SUMMARY | 2025-04-21 12:38 | XMS_ITS | Clinical Summary ---
Author Organization [facility] Address [address] [place] [address] Care Team Providers Care Plate Molder Name Role Phone Zari Mora DO Primary [...] age to complete this topic Care Teams Plate Molder Relationship Specialty Start Date End Date Zari Mora DO [address] [place] [address] PCP - General Retail Assistant Store Manager 04/06/22
--- OUTSIDE RECORDS SUMMARY | 2025-04-21 12:38 | XMS_ITS | Encounter Summary ---
Author Organization [facility] Address [address] [place] [address] Care Team Providers Care Level Glass Vial Filler Name Role Phone Evie Perez MD Primary Care Provider Encounter Details Date Type Department Care Team (Late Contact Info) Description 03/03/2025 Results Follow-Up Vascular Surgery - [place] [address] [place] [phone] Abena Zambrano PA [address] [place] [phone] Social History Tobacco Use Types Packs/Day Years Used Date Smoking Tobacco: Every Day Cigarettes 0 Last attempted to quit: 01/10/2022 Smokeless Tobacco: [...] Encounters Date Type Department Care Team (Late Contact Info) Description 05/03/2025 9:20 AM EST Office Visit Endocrinology - [place] [address] [place] [phone] Anisha Mortensen MD [address] [place] [address] 05/18/2025 9:00 AM EST Appointment [facility] CT Scan [address] [place] [address] 06/17/2025 9:15 AM EST Office Visit [facility] Hematology Oncology [address] [place] [phone] Ward Skinner MD [address] [place] [address] 06/18/2025 8:30 AM EST Office Visit Vascular Surgery - [place] [address] [place] [address] Gaston Banguar MD [address] [place] [phone] documented as of this encounter Visit Diagnoses Not on filedocumented in this encounter Care Teams Level Glass Vial Filler Relationship Specialty Start Date End Date Evie Perez MD [address] [place] [address] PCP - General 12/12/23 documented as of this encounter
--- OUTSIDE RECORDS SUMMARY | 2025-04-21 12:39 | XMS_ITS | Clinical Summary ---
Author Organization [facility] Address [address] [place] [address] Care Team Providers Care Preventive Maintenance Coordinator Name Role Phone No, Pcp NUTRITION SERVICES AIDE Primary Care Provider Unavailabl e Immunizations Immunization [...] Orientation Not on file Plan of Treatment Not on file Medical Devices Not on file Care Teams Preventive Maintenance Coordinator Relationship Specialty Start Date End Date No, Pcp, NUTRITION SERVICES AIDE N/A Do not use PCP - General 03/12/18
--- OUTSIDE RECORDS SUMMARY | 2025-04-21 12:39 | XMS_ITS | Encounter Summary ---
Author Organization [facility] Address [address] [place] [address] Care Team Providers Care Prize Coordinator Name Role Phone Evie Perez MD Primary Care Provider Reason for Visit * Reason Onset Date Comments Medication Problem 04/14/2025 One touch ult ra 2 kit Encounter Details Date Type Department Care Team ([facility] st Contact Info) Description 04/14/2025 Telephone Endocrinology - [place] [address] [place] [address] Anisha Mortensen MD [address] [place] [address] Social History Tobacco Use Types Packs/Day Years Used Date Smoking Tobacco: Every Day Cigarettes 0 Last attempted to quit: 01/10/2022 Smokeless Tobacco: Never Alcohol Use Standard Drinks/Week Comments Never 0 (1 standard drink = 0.6 oz pur e alcohol) Comments No Sex and Gender Information Value Date Recorded Sex Assigned at Not on file Legal Sex Female 9:43 PM EST Gender Identity Not on file Sexual Orientation Not on file documented as of this encounter Progress Notes * Anisha Mortensen MD - 04/14/2025 1:35 PM EST New prescription was sent on 04/12 * Miryam Abernathy - 04/14/2025 12:44 PM EST Endocrine Call Primary endocrine provider: Dr. Anisha Mortensen MD Is the endocrine provider in the office toady?: yes Who is calling? Fax from [employer]. If not the patient or parent/guardian please check for authorization to share/verbal release. Why is the person calling? Medication refill; Prescription clarification. What are they asking to clarify? One Touch Ultra 2 Kit and Contour plus blue meter kit kit test strips and lancets. Please send directly to endocrine provider. . One touch ultra 2 Kit is not covered, requesting approval to dispense a covered alternative. Pleaseinclude strength, direction, qty (90 day supply is preferred) and number of refills. Contour Plus Blue Meter Kit test strips and lancets, provide new prescription or initiate PA documented in this encounter Plan of Treatment Upcoming Encounters Date Type Department Care Team (Late st Contact Info) Description 05/03/2025 9:20 AM EST Office Visit Endocrinology [facility] [address] [place] [address] Anisha Mortensen MD [address] [place] [address] 05/18/2025 9:00 AM EST Appointment [facility] CT Scan [address] [place] [phone] 06/17/2025 9:15 AM EST Office Visit [facility] Hematology Oncology [address] [place] [phone] Ward Skinner MD [address] [place] [address] 06/18/2025 8:30 AM EST Office Visit Vascular Surgery - [place] [address] [place] [phone] Gaston Bangura MD [address] [place] [phone] documented as of this encounter Visit Diagnoses Not on filedocumented in this encounter Care Teams Prize Coordinator Relationship Specialty Start Date End Date Evie Perez MD [address] [place] [address] PCP - General 12/12/23 documented as of this encounter
--- OUTSIDE RECORDS SUMMARY | 2025-04-21 12:39 | XMS_ITS | Encounter Summary ---
Author Organization [facility] Address [address] [place] [address] Care Team Providers Care Electric Arc Furnace Operator Name Role Phone Evie Perez MD Primary Care Provider Encounter Details Date Type Department Care Team (Late Contact Info) Description 03/23/2025 Results Follow-Up Adult Medicine [address] [phone] Evie Perez MD [address] [place] [address] Social History Tobacco Use Types Packs/Day Years [...] 05/03/2025 9:20 AM EST Office Visit Endocrinology [address] [phone] Anisha Mortensen MD [address] [place] [address] 05/18/2025 9:00 AM EST Appointment [facility] CT Scan [address] [place] [address] 06/17/2025 9:15 AM EST Office Visit [facility] Hematology Oncology [address] [place] [phone] Ward Skinner MD [address] [place] [address] 06/18/2025 8:30 AM EST Office Visit Vascular Surgery [facility] [address] [place] [address] Gaston Bangura MD [address] [place] [phone] documented as of this encounter Visit Diagnoses Not on filedocumented in this encounter Care Teams Electric Arc Furnace Operator Relationship Specialty Start Date End Date Evie Perez MD [address] [place] [address] PCP - General 12/12/23 documented as of this encounter
--- OUTSIDE RECORDS SUMMARY | 2025-04-21 12:39 | XMS_ITS | Clinical Summary ---
Author Organization [address] [place] [address] Address [address] [place] [address] Phone Care Team Providers Care Language Asst Name Role Phone Evie Perez MD Primary Care Provider [phone] Allergies No known active allergies Medications insulin lispro 100 unit/mL injection Before meals as directed per sliding scale three times a day, max up to 25 units daily Active pen needle, diabetic (BD Amy 2nd Gen Pen Needle) 32 gauge x 5/32 needleIndicatio ns:Type 2 diabetes mellitus with other specified complication, with long-term current use of insulin ([facility] V24, [facility] V28) To inject insulin upto 2 times a day 100 each 3 06/01/19 25 Active blood-glucose meter,continuou s (Dexcom G7 Sweep Molder) miscIndications :Type 2 diabetes mellitus with other specified complication, with long-term current use of insulin ([facility] V24, [facility] V28) 1 Device by Does not apply route continuous1 Device by Does not apply route continuous1 Device by Does not apply route continuous 3 each 06/25/19 25 Active blood-glucose sensor (Dexcom G7 Sensor) deviceIndicatio ns:Type 2 diabetes mellitus with other specified complication, with long-term current use of insulin ([facility] V24, [facility] V28) Box = Kit = EA USE DIRECTED CHANGE SENSOR EVERY 10 DAYS 3 each 06/25/19 25 Active Xarelto 2.5 mg tablet TAKE 1 TABLET BY MOUTH TWICE DAILY 180 tablet 3 09/05/19 25 Active aspirin 81 mg EC tablet TAKE 1 TABLET BY MOUTH EVERY DAY 90 tablet 3 10/31/19 25 Active HumaLOG KwikPen Insulin 100 unit/mL injection penIndications: Type 2 diabetes mellitus with other specified complication ([facility] V24, [facility] V28) BEFORE MEALS DIRECTED PER SLIDING SCALE THREE TIMES A DAY, MAX UP TO 25 UNITS DAILY. 15 mL 1 01/28/20 25 Active semaglutide (Rybelsus) 14 mg tablet Take 1 tablet (14 mg total) by mouth 1 (one) time each day. 90 tablet 1 04/05/20 25 Active blood-glucose meter kit Contour plus blue meter kit with test trips and lancets . Use up to 4 times daily to check blood sugars for type 2 diabetes mellitus E11.9 1 each 04/12/20 25 026 Active glucose blood test strip 1 Strip by In Vitro route 2 times daily 025 Discontinued glucose blood test strip 1 Strip by In Vitro route as needed 025 Discontinued Rybelsus 14 mg tablet TAKE 1 TABLET BY MOUTH EVERY DAY 90 tablet 1 09/29/19 25 025 Discontinued(R eorder) blood-glucose meter (OneTouch Ultra2 Meter) miscIndications :Type 2 diabetes mellitus without complication, without long-term current use of insulin ([facility] V24, [facility] V28) Use to monitor blood sugars up to 4 times daily for type 2 diabetes mellitus E11.9 1 each 04/02/20 25 025 Discontinued OneTouch Ultra Test test stripIndication s:Type 2 diabetes mellitus without complication, without long-term current use of insulin ([facility] V24, [facility] V28) Use to monitor blood sugars up to 4 times daily for type 2 diabetes mellitus E11.9 100 each 2 04/02/20 25 025 Discontinued(R eorder) lancets (The MillTouch UltraSoft 2 Lancet) 30 gauge miscIndications :Type 2 diabetes mellitus without complication, without long-term current use of insulin ([facility] V24, [facility] V28) Monitor blood sugars up to 4X daily for type 2 diabetes mellitus E11.9 100 each 3 04/02/20 25 025 Discontinued(R eorder) OneTouch Ultra Test test stripIndication s:Type 2 diabetes mellitus without complication, without long-term current use of insulin ([facility] V24, [facility] V28) Use to monitor blood sugars up to 4 times daily for type 2 diabetes mellitus E11.9Use to monitor blood sugars up to 4 times daily for type 2 diabetes mellitus E11.9 400 each 04/12/20 025 Discontinued lancets (OneTouch UltraSoft 2 Lancet) 30 gauge miscIndications :Type 2 diabetes mellitus without complication, without long-term current use of insulin ([facility] V24, [facility] V28) Monitor blood sugars up to 4X daily for type 2 diabetes mellitus E11.9Monitor blood sugars up to 4X daily for type 2 diabetes mellitus E11.9 400 each 04/12/20 025 Discontinued Active Problems Problem Noted Date Diagnosed Date Lump on neck 08/18/2024 Erythrocytosis 08/18/2024 PAD (peripheral artery disease) ([facility] V24) Vascular device, implant, or graft infection or inflammation, subsequent encounter 04/10/2024 Hyperlipidemia 03/02/2024 Hypertension 03/02/2024 Ocular headache 03/02/2024 Type 2 diabetes mellitus ([facility] V24, [facility] V 28) 03/02/2024 Adhesive capsulitis of right shoulder associated with type 2 diabetes mellitus ([facility] V24, [facility] V28) 04/17/2022 Nontraumatic complete tear of right rotator cuff 04/17/2022 Encounters Date Type Department Care Team Description 04/14/2025 Telephone Endocrinology [address] [phone] Anisha Mortensen MD 04/02/2025 Telephone Endocrinology [address] [phone] Anisha Mortensen MD 03/31/2025 9:00 AM EST Office Visit [address] [phone] Ines Orourke MD Type 2 diabetes mellitus with other specified complication, with long-term current use of insulin ([facility] V24, [facility] V28) (Primary Dx) 03/26/2025 8:35 AM EDT Lab Draw [address] Type 2 diabetes mellitus with diabetic neuropathy, with long-term current use of insulin ([facility] V24, [facility] V28); Hyperlipidemia, unspecified hyperlipidemia type 03/26/2025 Results Follow-Up Adult Medicine [address] [phone] Evie Perez MD 03/23/2025 Results Follow-Up [address] [phone] Evie Perez MD 03/19/2025 8:30 AM EDT Office Visit Vascular Surgery [facility] [address] [phone] Gaston Bangura MD PAD (peripheral artery disease) ([facility] V24) (Primary Dx) 03/18/2025 9:00 AM EDT Office Visit [facility] Hematology Oncology [address] [place] [phone] Ward Skinner MD Polycythemia vera ([facility] V24, [facility] V28) (Primary Dx) 03/18/2025 Telephone [facility] Hematology Oncology [address] [place] [phone] Ward Skinner MD 03/18/2025 Telephone [facility] Hematology Oncology [address] [place] [phone] Onofre Tenorio MA 03/12/2025 6:45 AM EDT - 03/12/2025 11:59 PM EDT Hospital Encounter [facility] CT Scan [address] [place] [address] Encounter for screening for malignant neoplasm of respiratory organs; Nicotine dependence, cigarettes, uncomplicated Discharge Disposition: Home or Self Care 03/03/2025 Results Follow-Up Vascular Surgery [facility] [address] [phone] Abena Zambrano PA 03/02/2025 9:15 AM EDT Ancillary Procedure [facility] [address] [facility] [address] [place] [phone] PAD (peripheral artery disease) ([facility] V24) 03/02/2025 Telephone [facility] [address] [facility] [address] [place] [phone] Gena Coburn 02/26/2025 9:00 AM EDT Office Visit [facility] Hematology Oncology [address] [place] [phone] Ward Skinner MD Erythrocytosis (Primary Dx) 02/08/2025 Telephone Lung Screening Program - [place] [address] [facility] [address] [place] [phone] Kalani Grissom MA from Last 3 Months [...] N/A PROCEDURE: HISTORICAL COLONOSCOPY SECTION N/A PROCEDURE: SD DELIVERY ONLY; COMMENT: X2 OTHER SURGICAL HISTORY N/A PROCEDURE: SD ARTHROSCOPY TEMPOROMANDIBULAR JOINT SURGICAL OTHER SURGICAL HISTORY 01/02/2022 PROCEDURE: SD SLCTV CATHJ 3RD+ ORD SLCTV ABDL PEL/LXTR BRNCH OTHER SURGICAL HISTORY 01/02/2022 PROCEDURE: X-RAY ABDOMINAL AORTA, LEG ARTERIES OTHER SURGICAL HISTORY 01/02/2022 PROCEDURE: X-RAY EXAM OF ARM/LEG ARTERIES OTHER SURGICAL HISTORY 01/02/2022 PROCEDURE: ULTRASOUND GUIDANCE FOR VASCULAR AC OTHER SURGICAL HISTORY 02/07/2022 Left PROCEDURE: SD BYPASS W/VEIN FEMORAL-POPLITEAL OTHER SURGICAL HISTORY 02/07/2022 Left PROCEDURE: SD REVSC OPN/PRQ ILIAC ART W/STNT PLMT & ANGIOPLSTY OTHER SURGICAL HISTORY 02/07/2022 Left PROCEDURE: SD TEAEC W/WO PATCH GRAFT ILIOFEMORAL OTHER SURGICAL HISTORY 03/27/2022 PROCEDURE: SD REVASCULARIZATION ILIAC ARTERY ANGIOP 1ST VSL OTHER SURGICAL HISTORY 03/27/2022 PROCEDURE: SD REVSC OPN/PRG FEM/POP W/ANGIOPLASTY UNI OTHER SURGICAL HISTORY 03/27/2022 PROCEDURE: ULTRASOUND GUIDANCE FOR VASCULAR AC OTHER SURGICAL HISTORY 05/02/2022 Right PROCEDURE: SD TEAEC W/GRAFT POPLITEAL ARTERY OTHER SURGICAL HISTORY 07/30/2023 PROCEDURE: SD SLCTV CATHJ EA 1ST ORD ABDL PEL/LXTR ART BRNCH OTHER SURGICAL HISTORY 07/30/2023 PROCEDURE: X-RAY EXAM OF ARM/LEG ARTERY; COMMENT: X2 OTHER SURGICAL HISTORY 07/30/2023 PROCEDURE: ULTRASOUND GUIDANCE FOR VASCULAR AC OTHER SURGICAL HISTORY 07/31/2023 Left PROCEDURE: SD BYP OTH/THN VEIN ILIOFEMORAL OTHER SURGICAL HISTORY 07/31/2023 PROCEDURE: SD ROPRTJ > 1 MO AFTER ORIGINAL OPRATION OTHER SURGICAL HISTORY 09/04/2023 PROCEDURE: SD EXCISION INFECTED GRAFT ABDOMEN OTHER SURGICAL HISTORY 09/04/2023 PROCEDURE: SD RPR BLOOD VESSEL DIRECT LOWER EXTREMITY OTHER SURGICAL HISTORY 09/04/2023 PROCEDURE: SD OMENTAL FLAP INTRA-ABDOMINAL OTHER SURGICAL HISTORY 09/04/2023 PROCEDURE: SD INSERTION DRUG DELIVERY IMPLANT Medical History Medical History Date Comments Diabetes mellitus ([facility] V 24, [facility] V28) DX:Diabetes mellitus (HCC) Peripheral vascular disease [...] Sign Reading Time Taken Comments Blood Pressure 116/59 03/31/2025 8:41 AM EST Pulse 71 03/31/2025 8:41 AM EST Temperature 36.1 C (96.9 F) 03/31/2025 8:41 AM EST Respiratory Rate 16 03/19/2025 8:21 AM EDT Oxygen Saturation 100% 03/18/2025 8:53 AM EDT Inhaled Oxygen Concentration - - Weight 65.4 kg (144 lb 3.2 oz) 03/31/2025 8:41 A M EST Height 168.9 cm (5' 6.5 ) 03/31/2025 8:41 AM EST Body Mass Index 22.93 03/31/2025 8:41 AM EST Plan of Treatment Upcoming Encounters Date Type Department Care Team (Late st Contact Info) Description 05/03/2025 9:20 AM EST Office Visit Endocrinology - [place] [address] [place] [phone] Anisha Mortensen MD [address] [place] [address] 05/18/2025 9:00 AM EST Appointment [facility] CT Scan [address] [place] [phone] 06/17/2025 9:15 AM EST Office Visit [facility] Hematology Oncology [address] [place] [phone] Ward Skinner MD [address] [place] [address] 06/18/2025 8:30 AM EST Office Visit Vascular Surgery - [place] [address] [place] [phone] Gaston Bangura MD [address] [place] [phone] Health Maintenance Due Date Last Done Comments Breast Cancer Screening 1955 Colorectal Cancer Screening: Colonoscopy 1955 DTaP,Tdap,and Td Vaccines (1 - Tdap) 1973 RSV Immunization Adult Patients (1 - Risk 50-74 years 1-dose series) 2004 Zoster Vaccines (1 of 2) 2004 Osteoporosis Screening (Bone Density Screening) 07/02/2019 Social Influencers of Health Screening 07/02/2019 Depression Screening 05/27/2024 01/08/2024 Diabetes: Annual Retina Eye Exam 01/07/2025 01/08/2024 Falls Risk Assessment 01/07/2025 01/08/2024 COVID-19 Vaccine ( season) 2025 03/14/2021, 09/03/2020, 08/13/2020 Influenza Vaccine (#1) 2025 , 03/09/2022, 03/08/2021, Additional history exists Diabetes: Blood Sugar Control Test (HGBA1C) 09/23/2025 03/26/2025, 12/03/2024, 08/14/2024, Additional history exists Diabetes: Annual Urine Albumin-Creatinine Ratio (uACR) 03/26/2026 03/26/2025, 12/03/2024, 08/14/2024, Additional history exists Diabetes: Annual GFR (Glomerular Filtration Rate) 03/26/2026 03/26/2025, 12/03/2024, 08/14/2024 Hypertension/CHF/CAD Annual BMP Blood Test 03/26/2026 03/26/2025, 12/03/2024, 08/14/2024 Diabetes: Annual Foot Exam 03/31/2026 03/31/2025, Cholesterol Screening (Lipid Panel) 03/26/2030 03/26/2025, 12/03/2024, 08/14/2024, Additional history exists Pneumococcal Vaccine: 50+ Years [...] Procedure Name Priority Date/Time Associated Diagnosis Comments MICROALBUMIN CREATININE URINE RATIO Routine 03/26/2025 8:53 AM EDT Type 2 diabetes mellitus with diabetic neuropathy, with long-term current use of insulin ([facility] V24, [facility] V28) LIPID PANEL WITH REFLEX TO DIRECT LDL Routine 03/26/2025 8:53 AM EDT Type 2 diabetes mellitus with diabetic neuropathy, with long-term current use of insulin ([facility] V24, [facility] V28) Hyperlipidemia, unspecified hyperlipidemia type HEMOGLOBIN A1C Routine 03/26/2025 8:53 AM EDT Type 2 diabetes mellitus with diabetic neuropathy, with long-term current use of insulin ([facility] V24, [facility] V28) COMPREHENSIVE METABOLIC PANEL Routine 03/26/2025 8:53 AM EDT Type 2 diabetes mellitus with diabetic neuropathy, with long-term current use of insulin ([facility] V24, [facility] V28) CT LUNG SCREENING Routine 03/12/2025 7:1 4 AM EDT Encounter for screening for malignant neoplasm of respiratory organs Nicotine dependence, cigarettes, uncomplicated VAS US DUPLEX LOWER EXT ARTERIES BILAT WITH ZAY Routine 03/02/2025 9:43 AM EDT PAD (peripheral artery disease) ([facility] V24) CBC WITH AUTO DIFFERENTIAL Routine 02/26/2025 9:18 AM EDT Erythrocytosis RETICULOCYTE COUNT Routine 02/26/2025 9: 18 AM EDT Erythrocytosis ERYTHROPOIETIN Routine 02/26/2025 9:18 AM EDT Erythrocytosis CBC AND DIFFERENTIAL Routine 02/26/2025 9:18 AM EDT Erythrocytosis JAK2 GENE, V617F MUTATION, QUANTITATIVE, MOLECULAR STUDY Routine 02/26/2025 9:18 AM EDT Erythrocytosis HEPATITIS C ANTIBODY Routine 04/03/2024 9:30 AM EST Hyperlipidemia Hypertension Type 2 diabetes mellitus ([facility] V24, [facility] V28) Routine general medical examination at a health care facility DEPRESSION SCREENING Routine 01/08/2024 FALLS RISK ASSESSMENT Routine 01/08/2024 DIABETES EYE EXAM Routine 01/08/2024 DIABETES FOOT EXAM Routine 01/08/2024 from Last 3 Months or Most Recently Relevant to Health Maintenance Results * (ABNORMAL) Lipid panel with reflex to direct LDL (03/26/2025 8:53 AM EDT) [facility] Cholesterol 219(H) 0 - 200 mg/dL LAB CHEMISTRY METHOD 03/26/2025 12:48 PM EDT [facility] Triglycerides 114 0 - 150 mg/dL LAB CHEMISTRY METHOD 03/26/2025 12:48 PM EDT [facility] HDL 56 >=40 mg/dL LAB CHEMISTRY METHOD 03/26/2025 12:[facility] LDL Calculated 140(H) 0 - 100 mg/dL LAB CHEMISTRY METHOD 03/26/2025 12:48 PM EDT [facility] Comment:Estimated LDL Calcul ated using equation: Total cholesterol - HDL cholesterol - (Triglycerides/5) VLDL Cholesterol Ray 22.8 mg/dL LAB CHEMISTRY METHOD 03/26/2025 12:48 PM EDT [facility] Non HDL Chol. (LDL+VLDL) 163(H) <145 mg/dL LAB CHEMISTRY METHOD 03/26/2025 12:48 PM EDT [facility] Chol/HDL Ratio 3.9 0.0 - 4.4 LAB CHEMISTRY METHOD 03/26/2025 12:48 PM [facility] Blood Venous blood specimen / Unknown Venipuncture / Unknown 03/26/2025 8:53 AM EDT 03/26/2025 8:53 AM EDT us Evie Perez MD LAB BLOOD ORDERABLES Final Result [facility] [address] [place] [address], * (ABNORMAL) Microalbumin creatinine urine ratio (03/26/2025 8:53 AM EDT) Creatinine, Urine 28.0 mg/dL LAB CHEMISTRY METHOD 03/26/2025 12:45 PM EDT [facility] Microalb, Ur 14.1 0.0 - 29.0 mg/L LAB CHEMISTRY METHOD 03/26/2025 12:45 PM EDT [facility] Microalb/Creat Ratio 50(H) <30 mg/g creat LAB CHEMISTRY METHOD 03/26/2025 12:45 PM EDT [facility] Urine Urine specimen obtained by clean catch procedure / Unknown Non-blood Collection / Unknown 03/26/2025 8:53 AM EDT 03/26/2025 8:53 AM EDT Evie Perez MD LAB URINE ORDERABLES Final Result Performing Organization Address [facility]/ZIP Co de Phone Number [facility] [address] [place] [address], [place] [phone] * Hemoglobin A1c (03/26/2025 8:53 AM EDT) Hemoglobin A1C 6.4 <6.5 % LAB CHEMISTRY METHOD 03/26/2025 1:23 PM EDT [facility] Mean Bld Glu Estim. 137 mg/dL LAB CHEMISTRY METHOD 03/26/2025 1:23 PM EDT [facility] Blood Venous blood specimen / Unknown Venipuncture / Unknown 03/26/2025 8:53 AM EDT 03/26/2025 8:53 AM EDT us Evie Perez MD LAB BLOOD ORDERABLES Final Result Performing Organization Address City/[facility]/ZIP Co de Phone Number [facility] [address] [place] [address], [place] [phone] * (ABNORMAL) Comprehensive metabolic panel (03/26/2025 8:53 AM EDT) Pathologist [facility] Sodium 136 133 - 145 mmol/L LAB CHEMISTRY METHOD 03/26/2025 12:48 PM EDT [facility] Potassium 4.6 3.5 - 5.5 mmol/L LAB CHEMISTRY METHOD 03/26/2025 12:48 PM EDT [facility] Chloride 101 96 - 110 mmol/L LAB CHEMISTRY METHOD 03/26/2025 12:48 PM [facility] CO2 30 21 - 32 mmol/L LAB CHEMISTRY METHOD 03/26/2025 12:48 PM [facility] Anion Gap 5 3 - 11 LAB CHEMISTRY METHOD 03/26/2025 12:48 PM [facility] Glucose 129(H) 70 - 100 mg/dL LAB CHEMISTRY METHOD 03/26/2025 12:48 PM [facility] BUN 8 5 - 25 mg/dL LAB CHEMISTRY METHOD 03/26/2025 12:48 PM [facility] Creatinine 0.78 0.50 - 1.10 mg/dL LAB CHEMISTRY METHOD 03/26/2025 12:48 PM [facility] eGFR 82 >=60 mL/min/1. 73m2 LAB CHEMISTRY METHOD 03/26/2025 12:48 PM [facility] Comment:Calculation based on the Chronic Kidney Disease Epidemiology Collaboration (CKD-EPI) equation refit without adjustment for race. BUN/Creatinine Ratio 10.3 LAB CHEMISTRY METHOD 03/26/2025 12:48 PM [facility] Calcium 9.3 8.5 - 10.5 mg/dL LAB CHEMISTRY METHOD 03/26/2025 12:48 PM [facility] AST (SGOT) 7(L) 10 - 42 unit/L LAB CHEMISTRY METHOD 03/26/2025 12:48 PM [facility] ALT (SGPT) 14 10 - 60 unit/L LAB CHEMISTRY METHOD 03/26/2025 12:48 PM [facility] Alkaline Phosphatase 62 42 - 121 unit/L LAB CHEMISTRY METHOD 03/26/2025 12:48 PM [facility] Total Protein 6.5 6.0 - 8.0 g/dL LAB CHEMISTRY METHOD 03/26/2025 12:48 PM [facility] Albumin 3.7 3.2 - 5.0 g/dL LAB CHEMISTRY METHOD 03/26/2025 12:48 PM EDT [facility] Total Bilirubin 0.3 0.0 - 1.4 mg/dL LAB CHEMISTRY METHOD 03/26/2025 12:48 PM EDT [facility] Blood Venous blood specimen / Unknown Venipuncture / Unknown 03/26/2025 8:53 AM EDT 03/26/2025 8:53 AM EDT us Evie Perez MD LAB BLOOD ORDERABLES Final Result [facility] [address] [place] [address], * CT Lung Screening (03/12/2025 7:14 AM [...] Signed Date: 03/18/2025 09:40 ET Workstation ID: [id number] Transcribed By: Self Edit Transcribed Date: 03/18/2025 [...] Signed Date: 03/18/2025 09:40 ET Workstation ID: [id number] Transcribed By: Self Edit Transcribed Date: 03/18/2025 [...] PSV 13 cm/s CV VAS LAB Left AIR SURVEILLANCE OPERATOR prox sys PSV 19 cm/s CV VAS [...] PSV 56 cm/s CV VAS LAB Right AIR SURVEILLANCE OPERATOR prox sys PSV 220 cm/s CV VAS [...] increased velocity without evidence of stenosis. Right AIR SURVEILLANCE OPERATOR has 50 to 99% (close to 50%) [...] left femoral to popliteal graft present: proximal ongrlekcgdg=073.3cm/s (monophasic turbulent flow) proximal= occluded mid= occluded [...] mid peroneal artery has blunted monophasic flow. Spring Forger Details A davenport scale, color and doppler analysis ultrasound was performed. During the study longitudinal and transverse views were obtained. Pulsed wave doppler was performed. us Gaston Bangura MD CV VASCULAR PROCEDURES Final Re sult * (ABNORMAL) JAK2 gene, V617F mutation, quantitative, molecular study (02/26/2025 9:18 AM EDT) [facility] JAK2 (V617F) Mutation DETECTED( A) Not detected [...] characteristics of this procedure were determined by [facility]. This test is performed pursuant to a license agreement with [employer] Test performed at [facility], [address] , [place] [address] Mary Emanuel MD, PhD - Java Development Manager Blood Venous blood specimen / Unknown Venipuncture / Unknown 02/26/2025 9:18 AM EDT 02/26/2025 11:30 AM EDT Ward Skinner MD LAB MOLECULAR DIAGNOSTICS OR DERABLES Final Result [facility] [address] [place] [address] * (ABNORMAL) CBC auto differential (02/26/2025 9:18 AM EDT) WBC 9.9 4.8 - 10.8 K/mcL LAB HEMETOLOGY METHOD 02/26/2025 11:40 AM EDT [facility] RBC 5.90(H) 3.80 - 4.80 M/mcL LAB HEMETOLOGY METHOD 02/26/2025 11:40 AM EDT [facility] Hemoglobin 17.3(H) 11.5 - 16.0 g/dL LAB HEMETOLOGY METHOD 02/26/2025 11:40 AM EDT [facility] Hematocrit 54.2(H) 35.0 - 47.0 % LAB HEMETOLOGY METHOD 02/26/2025 11:40 AM EDT [facility] MCV 92.5 79.0 - 98.0 FL LAB HEMETOLOGY METHOD 02/26/2025 11:40 AM [facility] MCH 29.5 27.0 - 32.0 pcg LAB HEMETOLOGY METHOD 02/26/2025 11:40 AM [facility] MCHC 31.9(L) 32.0 - 37.0 g/dL LAB HEMETOLOGY METHOD 02/26/2025 11:40 AM [facility] RDW 14.7 11.0 - 15.0 % LAB HEMETOLOGY METHOD 02/26/2025 11:40 AM [facility] Platelets 379 130 - 400 K/mcL LAB HEMETOLOGY METHOD 02/26/2025 11:40 AM [facility] MPV 10.9 7.0 - 11.0 FL LAB HEMETOLOGY METHOD 02/26/2025 11:40 AM [facility] NRBC 0.0 <1.0 % LAB HEMETOLOGY METHOD 02/26/2025 11:40 AM [facility] NRBC Absolute 0.00 <0.10 K/mcL LAB HEMETOLOGY METHOD 02/26/2025 11:40 AM [facility] Neutrophils Relative 68.3 % LAB HEMETOLOGY METHOD 02/26/2025 11:40 AM [facility] Lymphocytes Relative 20.7 % LAB HEMETOLOGY METHOD 02/26/2025 11:40 AM [facility] Monocytes Relative 8.5 % LAB HEMETOLOGY METHOD 02/26/2025 11:40 AM [facility] Eosinophils Relative 1.0 % LAB HEMETOLOGY METHOD 02/26/2025 11:40 AM [facility] Basophils Relative 1.3 % LAB HEMETOLOGY METHOD 02/26/2025 11:40 AM EDT [facility] Immature Granulocytes Relative 0.2 % LAB HEMETOLOGY METHOD 02/26/2025 11:40 AM EDT [facility] Neutrophils Absolute 6.74 1.50 - 7.00 [facility] LAB HEMETOLOGY METHOD 02/26/2025 11:40 AM EDT [facility] Lymphocytes Absolute 2.04 1.00 - 5.00 K/mcL LAB HEMETOLOGY METHOD 02/26/2025 11:40 AM EDT [facility] Monocytes Absolute 0.84 0.20 - 1.00 [facility] LAB HEMETOLOGY METHOD 02/26/2025 11:40 AM EDT [facility] Eosinophils Absolute 0.10 0.00 - 0.50 [facility] LAB HEMETOLOGY METHOD 02/26/2025 11:40 AM EDT [facility] Basophils Absolute 0.13 0.00 - 0.20 K/mcL LAB HEMETOLOGY METHOD 02/26/2025 11:40 AM EDT [facility] Immature Granulocytes Absolute 0.02 0.00 - 0.03 K/mcL LAB HEMETOLOGY METHOD 02/26/2025 11:40 AM [facility] Blood Venous blood specimen / Unknown Venipuncture / Unknown 02/26/2025 9:18 AM EDT 02/26/2025 11:30 AM EDT [facility] Hope Skinner MD LAB BLOOD ORDERABLES Final R esult [facility] [address] [place] [address], * Erythropoietin (02/26/2025 9:18 AM EDT) Erythropoietin 5.3 2.6 - 18.5 mIU/mL 03/01/2025 7:46 PM EDT [facility] Comment: Test performed at [facility], [address], [place] [address] Mary Emanuel MD, PhD - Java Development Manager Blood Venous blood specimen / Unknown Venipuncture / Unknown 02/26/2025 9:18 AM EDT 02/26/2025 11:30 AM EDT Ward Skinner MD LAB BLOOD ORDERABLES Final R esult [facility] [address] [place] [address] * (ABNORMAL) Reticulocyte count (02/26/2025 9:18 AM EDT) Pathologist [facility] Retic Ct Abs 0.110(H) 0.030 - 0.090 M/mcL LAB HEMETOLOGY METHOD 02/26/2025 11:40 AM EDT [facility] Retic Ct Pct 1.8(H) 0.7 - 1.7 % LAB HEMETOLOGY METHOD 02/26/2025 11:40 AM EDT [facility] Immature Retic Fract 10.7 2.3 - 15.9 % LAB HEMETOLOGY METHOD 02/26/2025 11:40 AM EDT [facility] Reticulocyte Hemoglobin 32.7 >29.0 pcg LAB HEMETOLOGY METHOD 02/26/2025 11:40 AM EDT [facility] Blood Venous blood specimen / Unknown Venipuncture / Unknown 02/26/2025 9:18 AM EDT 02/26/2025 11:30 AM EDT Ward Skinner MD LAB BLOOD ORDERABLES Final R esult [facility] [address] [place] [address], * Hepatitis C antibody (04/03/2024 9:30 AM EST) [facility] Hepatitis C Antibody Negative Negative LAB CHEMISTRY METHOD 04/03/2024 1:17 PM EST [facility] Blood Venous blood specimen / Unknown Venipuncture / Unknown 04/03/2024 9:30 AM EST 04/03/2024 9:30 AM EST Evie Perez MD LAB BLOOD ORDERABLES Final Result [facility] [address] [place] [address], [place] [phone] * Falls Risk Assessment (01/08/2024) [facility] Falls Risk Assessment abstracted [facility] Provider HEALTH MAINTENANCE Final Result * Depression Screening (01/08/2024) [facility] Depression Screening abstracted Result [facility] Provider HEALTH MAINTENANCE Final Result * Diabetes Foot Exam (01/08/2024) [facility] Diabetes: Annual Foot Exam abstracted [facility] Provider HEALTH MAINTENANCE Final Result * Diabetes Eye Exam (01/08/2024) [facility] Diabetes: Annual Retina Eye Exam abstracted [facility] Provider HEALTH MAINTENANCE Final Result from Last 3 Months or Most Recently Relevant to Health Maintenance Insurance [employer] Care Teams Language Asst Relationship Specialty Start Date End Date Evie Perez MD [address] [place] [address] PCP - General 12/12/23
== END 2025-04-21 10:35 | disposition home or self-care (01) ==
LOC: HO.BBR 10:34
PROVIDERS: PCP Internal Medicine; Visit Provider Internal Medicine
DX: D45 Polycythemia vera (principal)
CPT/HCPCS: 85018; 99195

== ENCOUNTER 2025-05-17 10:26 | Outpatient (REF) | payer OTHER, SELFPAY ==
--- OUTSIDE RECORDS SUMMARY | 2025-05-17 12:47 | XMS_ITS | Encounter Summary ---
Author Organization [facility] Address [address] [place] [address] Care Team Providers Care Cmm Inspector Name Role Phone Evie Perez MD Primary Care Provider Reason for Visit * Reason Onset Date Comments Medication Problem 04/14/2025 One touch ult ra 2 kit Encounter Details Date Type Department Care Team ([facility] st Contact Info) Description 04/14/2025 Telephone Endocrinology - [place] [address] [place] [address] Anisha Mortensen MD [address] [place] [address] Social History Tobacco Use Types Packs/Day Years [...] Care Team (Late st Contact Info) Description 05/18/2025 9:00 AM EST Appointment [facility] CT Scan [address] [place] [address] 06/17/2025 9:15 AM EST Office Visit [facility] Hematology Oncology [address] [place] [address] Ward Skinner MD [address] [place] [address] 06/18/2025 8:30 AM EST Office Visit Vascular Surgery - [place] [address] [place] [address] Gaston Bangura MD [address] [place] [address] 11/01/2025 9:00 AM EDT Office Visit Endocrinology - [address] [address] Anisha Mortensen MD [address] [place] [address] documented as of this encounter Visit Diagnoses Not on filedocumented in this encounter Care Teams Cmm Inspector Relationship Specialty Start Date End Date Evie Perez MD [address] [place] [address] PCP - General 12/12/23 documented as of this encounter
--- OUTSIDE RECORDS SUMMARY | 2025-05-17 12:47 | XMS_ITS | Clinical Summary ---
Author Organization [facility] Prior to 10/24/24 Address [address] [place] [address] Care Team Providers Care Spectrograph Operator Name Role Phone Zari Mora DO Primary [...] age to complete this topic Care Teams Spectrograph Operator Relationship Specialty Start Date End Date Zari Mora DO [address] [place] [address] PCP - General [employer] 04/06/22
--- OUTSIDE RECORDS SUMMARY | 2025-05-17 12:47 | XMS_ITS | Patient Health Record ---
Author Organization [facility] Address [address] [place] [address] Care Team Providers Care Senior Pl Sql Developer Name Role Phone SARAH SANTIAGO Primary Care Provide r [phone] MELANIE Sharp Unavailable [phone] Allergies No Known Allergies Reason For Referral No Information Medications Medication SIG (Take, Route, Frequency, Duration) Notes Start Date End Date Status ReliOn Blood Glucose Test - Strip as directed In Vitro Active Clopidogrel Bisulfate 75 MG Tablet 1 tablet Orally Once a day; Duration: 30 day(s) Active Xarelto 2.5 MG Tablet 1 tablet Orally Tw ice a day; Duration: 30 day(s) Active Lantus SoloStar 100 UNIT/ML Solution Pen-injector 10 units, may increase by 2 units every 3-4 days if fasting BG remain > 140 & no lows, up to 20 units daily Subcutaneous once daily; Duration: 90 days 06/22/2022 Active Rybelsus 14 MG Tablet 1 tab Orally once daily; Duration: 90 days 12/18/2021 Active glipiZIDE ER 10 MG Tablet Extended Release 24 Hour 1 tab orally twice daily Active BD Pen Needle Amy U/F 32G X 4 MM Miscellaneous use to administer insulin daily; Duration: 90 days 06/22/2022 Active Immunizations Vaccine Route Administration Date Status Comme nts Pneumococcal (PPV23, adult) IM Intramuscular 03/28/2012 Administered Influenza, Fluzone QUAD, 3+ yrs, IM Intramuscular 03/15/2017 Administered Influenza, Fluzone HD 65+ IM Intramuscular 03/09/2022 Admi nistered Influenza Unknown 03/24/2012 Administered work FLU- FLUVIRIN, PRE-FILLED SYRINGE 0.5 ml Unknown 03/02/2013 Administered at work Social History Tobacco Use: Social History Observation Description Date Details (start date - stop date) Former Smoker NA - NA Social History Drug/Alcohol: Social Info Question Answer Notes Alcohol Screen Did you have a drink containing alcohol in the past year? Yes How often did you have a drink containing alcohol in the past year? Monthly or less (1 point) Points 1 Interpretation Negative Tobacco Use: Social Info Question Answer Notes Smoking Are you a: former smoker Additional Details Category Social Info Options Details General Occupation: Retired unemployed 10/13 18 asbestos exposure: no Past year's travels: none in alcohol use: no drug use: No Coffee/Tea/Soda: yes Coffee, 2, cups per day, no tea, no soda Marital Status experience no Living with technology training associate smokers in household no pt former s moker 12/2021 Section Notes: 5 cigarettes/day, working on quitting ./ quit two January 10 2022 5 cigarettes/day, working on quitting ./ quit January 10 2022 5 cigarettes/day, working on quitting 5 cigarettes/day, working on quitting 5 cigarettes/day, working on quitting Problems Problem Type SNOMED Code ICD Code Onset Dates Problem Status W/U Status Risk Notes Problem Peripheral neuropathy (378357261) Peripheral neuropathy (G62.9) Active confirmed Problem Constipation (81356837) Constipation, unspecified (K59.00) Active confirmed Problem Macrocytosis - no anemia (351143983) Macrocytosis without anemia (D75.89) Active confirmed Problem Hyperlipidemia (01296872) Hyperlipidemia (E78.5) Active confirmed Problem Thrombocytopenia (449318161) Thrombocytopenia, unspecified (D69.6) Active confirmed Problem Hyperglycemia due to type 2 diabetes mellitus (864083005339354) Type 2 diabetes mellitus with hyperglycemia (E11.65) Active confirmed Problem Atherosclerotic heart disease of [place] coronary artery without angina pectoris (200669504804714) Atherosclerotic heart disease of [place] coronary artery without angina pectoris (I25.10) Active confirmed Problem Lumbosacral spondylosis without myelopathy (disorder) (96980724) Spondylosis without myelopathy or radiculopathy, lumbosacral region (M47.817) Active confirmed Problem Anosmia (67758910) Anosmia (R43.0) Active confi rmed Problem Adjustment of implant (procedure) (711728790) Encounter for adjustment and management of unspecified implanted device (Z45.9) Active confirmed Problem Tobacco use (350864229) Tobacco use (Z72.0) Active confirmed Problem Long-term current use of anticoagulant (732227881) oysterman (current) use of anticoagulants (Z79.01) Active confirmed Problem Long-term current use of insulin (982765891) oysterman (current) use of insulin (Z79.4) Active confirmed Problem Diabetic peripheral neuropathy associated with type 2 diabetes mellitus (5963046738493) Type 2 diabetes mellitus with peripheral neuropathy (E11.40) Active confirmed Problem Type 2 diabetes mellitus with peripheral angiopathy (219296316) Type 2 diabetes mellitus with peripheral vascular disease (E11.51) Active confirmed Problem Diabetic renal disease (063537030) 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) Active confirmed Problem Type 2 diabetes mellitus (84591526) Type 2 diabetes mellitus (E11.9) Active confirmed Problem Foot-drop (0204189) Foot drop, left (M21.372) Active confirmed Problem Primary hypertension (58979519) Primary hypertension (I10) Active confirmed Problem Peripheral vascular disease (616020244) PAD (peripheral artery disease) (I73.9) Active confirmed Problem Postprocedural states (759278874) H/O endarterectomy (Z98.890) Active confirmed LE for PAD Problem Disorder of female genital organs (964959138) Adnexal fullness (N94.9) Active confirmed on CT abd from vascular 04/2023 Plan Of Treatment Future Test Test Name Order Date mammogram, BILATERAL 04/15/2015 Mammogram Screening Bilatera l, Perform Breast US and/or US-guided aspiration and/or breast biopsy if warranted 12/04/2017 GLYCOHEMOGLOBIN (HBA1C) 01/20/2020 VITAMIN B12 01/20/2020 AST ( SGOT) 01/20/2020 Urine Microalbumin(Creat/MALB Ratio) ALT(DO NOT USE) 01/20/2020 BASIC METABOLIC PANEL 01/20/2020 LIPID PROFILE 07/27/2020 GLYCOHEMOGLOBIN (HBA1C) 07/27/2020 AST ( SGOT) 07/27/2020 ALT(DO NOT USE) 07/27/2020 BASIC METABOLIC PANEL 07/27/2020 ESR 11/15/2020 VITAMIN B12 11/15/2020 CBC W/ AUTOMATED DIFF 11/15/2020 COMP. METABOLIC 11/15/2020 TSH WITH REFLEX TO FT4 11/15/2020 AST ( SGOT) 09/06/2021 ALT(DO NOT USE) 09/06/2021 BASIC METABOLIC PANEL 09/06/2021 GLYCOHEMOGLOBIN (HBA1C) 12/01/2021 AST ( SGOT) 12/01/2021 ALT(DO NOT USE) 12/01/2021 BASIC METABOLIC PANEL 12/01/2021 LIPID PROFILE 03/09/2022 VITAMIN B12 03/09/2022 FOLATE 03/09/2022 Bone density 03/09/2022 CBC W/ AUTOMATED DIFF 03/09/2022 COMP. METABOLIC 03/09/2022 HEPATIC FUNCTION PANEL 03/09/2022 25 OH Vitamin D 03/09/2022 Mammogram, bilateral, screening 03/09/20 XR : Shoulder, RIGHT 03/09/2022 FERRITIN (457) 03/09/2022 GLYCOHEMOGLOBIN (HBA1C) 03/20/2022 AST ( SGOT) 03/20/2022 ALT(DO NOT USE) 03/20/2022 BASIC METABOLIC PANEL 03/20/2022 BASIC METABOLIC PANEL 09/30/2022 CBC (COMPLETE BLOOD COUNT) WITH DIFF 11/2022 HEMOGLOBIN A1C 09/30/2022 PROTIME PROFILE 09/30/2022 Insurance Providers Payer Name Payer Address Payer Phone Subscriber Number Group Number Insured Name Patient Relationship to Insured Coverage Start Date Coverage End Date [facility] [address] [place] [address] [id number] BAIRON MILLER Spouse - patient is the spouse of the insured Medical (General) History Medical History History ICD Code type 2 diabetes - dx 1996. G DM early (ophpeymano - Jackowitz), intolerant metformin Dyslipidemia - myalgia w/ statin hypertension ocular migraines Colonoscopy 06/03/2013 - Pat h: Tubular adenoma in the R colon. Submucosal lipoma, peduculated in L colon Tobacco use right rotator cuff tear peripheral vascular disease Surgical History Surgery Date(Month/Year) right leg endarterectomy 04/2022 Femoral popliteal/distal bypass 02/2022 Toenails on both big toes removed 08/2021 bilateral laser iridotomy 2018 Jaw surgery x2
--- OUTSIDE RECORDS SUMMARY | 2025-05-17 12:47 | XMS_ITS | Clinical Summary ---
Author Organization [address] [place] [address] Address [address] [place] [address] Phone Care Team Providers Care Ordnance Artificer Name Role Phone Evie Perez MD Primary Care Provider [phone] Allergies No known active allergies Medications pen needle, diabetic (BD Amy 2nd Gen Pen Needle) 32 gauge x 5/32 needleIndicatio ns:Type 2 diabetes mellitus with other specified complication, with long-term current use of insulin (CMS/[facility] V24, CMS/[facility] V28) To inject insulin upto 2 times a day 100 each 06/01/19 25 Active blood-glucose meter,continuou s (Dexcom G7 Bag Inspector) miscIndications :Type 2 diabetes mellitus with other specified complication, with long-term current use of insulin (CMS/HCC V24, CMS/HCC V28) 1 Device by Does not apply route continuous1 Device by Does not apply route continuous1 Device by Does not apply route continuous 3 each 06/25/19 25 Active blood-glucose sensor (Dexcom G7 Sensor) deviceIndicatio ns:Type 2 diabetes mellitus with other specified complication, with long-term current use of insulin (CMS/HCC V24, CMS/HCC V28) Box = Kit = EA USE DIRECTED CHANGE SENSOR EVERY 10 DAYS 3 each 06/25/19 25 Active Xarelto 2.5 mg tablet TAKE 1 TABLET BY MOUTH TWICE DAILY 180 tablet 3 09/05/19 25 Active aspirin 81 mg EC tablet TAKE 1 TABLET BY MOUTH EVERY DAY 90 tablet 3 10/31/19 25 Active blood-glucose meter kit Contour plus blue meter kit with test trips and lancets . Use up to 4 times daily to check blood sugars for type 2 diabetes mellitus E11.9 1 each 04/12/20 25 026 Active semaglutide (Rybelsus) 14 mg tabletIndicatio ns:Type 2 diabetes mellitus with diabetic polyneuropathy, without long-term current use of insulin ([facility] V24, [facility] V28) Take 1 tablet (14 mg total) by mouth 1 (one) time each day. 90 tablet 1 05/03/20 25 Active insulin lispro 100 unit/mL injection Before meals as directed per sliding scale three times a day, max up to 25 units daily 025 Discontinued HumaLOG KwikPen Insulin 100 unit/mL injection penIndications: Type 2 diabetes mellitus with other specified complication ([facility] V24, [facility] V28) BEFORE MEALS DIRECTED PER SLIDING SCALE THREE TIMES A DAY, MAX UP TO 25 UNITS DAILY. 15 mL 1 01/28/20 25 025 Discontinued semaglutide (Rybelsus) 14 mg tablet Take 1 tablet (14 mg total) by mouth 1 (one) time each day. 90 tablet 1 04/05/20 25 025 Discontinued(R eorder) Active Problems Problem Noted Date Diagnosed Date Lump on neck 08/18/2024 Erythrocytosis 08/18/2024 PAD (peripheral artery disease) 04/10/2024 Vascular device, implant, or graft infection or inflammation, subsequent encounter 04/10/2024 Hyperlipidemia 03/02/2024 Hypertension 03/02/2024 Ocular headache 03/02/2024 Type 2 diabetes mellitus wit h diabetic polyneuropathy, without long-term current use of insulin 03/02/2024 Adhesive capsulitis of right shoulder associated with type 2 diabetes mellitus 04/17/2022 Nontraumatic complete tear of right rotator cuff 04/17/2022 Encounters Date Type Department Care Team Description 05/03/2025 9:20 AM EST [facility] [address] [place] [phone] Anisha Mortensen MD Type 2 diabetes mellitus with diabetic polyneuropathy, without long-term current use of insulin ([facility] V24, [facility] V28) (Primary Dx) 04/14/[address] [phone] Anisha Mortensen MD 04/02/[address] [phone] Anisha Mortensen MD 03/31/2025 9:00 AM EST Office Visit [address] [phone] Ines Orourke MD Type 2 diabetes mellitus with other specified complication, with long-term current use of insulin ([facility] V24, CMS/HCC V28) (Primary Dx) 03/26/2025 8:35 AM EDT Lab Draw Station [address] Type 2 diabetes mellitus with diabetic neuropathy, with long-term current use of insulin ([facility] V24, CMS/HCC V28); Hyperlipidemia, unspecified hyperlipidemia type 03/26/2025 Results Follow-Up Adult Medicine [address] [phone] Evie Perez MD 03/23/2025 Results Follow-Up Adult [address] [phone] Evie Perez MD 03/19/2025 8:30 AM EDT Office Visit Vascular Surgery [facility] [address] [place] [phone] Gaston Bangura MD PAD (peripheral artery disease) ([facility] V24) (Primary Dx) 03/18/2025 9:00 AM EDT Office Visit [facility] Hematology Oncology [address] [place] [phone] Ward Skinner MD Polycythemia vera ([facility]/HCC V24, CMS/HCC V28) (Primary Dx) 03/18/2025 Telephone [facility] Hematology Oncology [address] [place] [phone] Ward Skinner MD 03/18/2025 Telephone [facility] Hematology Oncology [address] [place] [phone] Onofre Tenorio MA 03/12/2025 6:45 AM EDT - 03/12/2025 11:59 PM EDT Hospital Encounter [facility] CT Scan [address] [place] [phone] Encounter for screening for malignant neoplasm of respiratory organs; Nicotine dependence, cigarettes, uncomplicated Discharge Disposition: Home or Self Care 03/03/2025 Results Follow-Up [facility] [place] [address] [place] [phone] Abena Zambrano PA 03/02/2025 9:15 AM EDT Ancillary Procedure [facility] Cardiology [facility] [address] [place] [phone] PAD (peripheral artery disease) ([facility] V24) 03/02/2025 Telephone [facility] Cardiology [facility] [address] [place] [phone] Gena Coburn 02/26/2025 9:00 AM EDT Office Visit [facility] Hematology Oncology [address] [place] [phone] Ward Skinner MD Erythrocytosis (Primary Dx) from Last 3 Months Immunizations Immunization Administration [...] N/A PROCEDURE: HISTORICAL COLONOSCOPY SECTION N/A PROCEDURE: DC DELIVERY ONLY; COMMENT: X2 OTHER SURGICAL HISTORY N/A PROCEDURE: DC ARTHROSCOPY TEMPOROMANDIBULAR JOINT SURGICAL OTHER SURGICAL HISTORY 01/02/2022 PROCEDURE: DC SLCTV CATHJ 3RD+ ORD SLCTV ABDL PEL/LXTR BRNCH OTHER SURGICAL HISTORY 01/02/2022 PROCEDURE: X-RAY ABDOMINAL AORTA, LEG ARTERIES OTHER SURGICAL HISTORY 01/02/2022 PROCEDURE: X-RAY EXAM OF ARM/LEG ARTERIES OTHER SURGICAL HISTORY 01/02/2022 PROCEDURE: ULTRASOUND GUIDANCE FOR VASCULAR AC OTHER SURGICAL HISTORY 02/07/2022 Left PROCEDURE: DC BYPASS W/VEIN FEMORAL-POPLITEAL OTHER SURGICAL HISTORY 02/07/2022 Left PROCEDURE: DC REVSC OPN/PRQ ILIAC ART W/STNT PLMT & ANGIOPLSTY OTHER SURGICAL HISTORY 02/07/2022 Left PROCEDURE: DC TEAEC W/WO PATCH GRAFT ILIOFEMORAL OTHER SURGICAL HISTORY 03/27/2022 PROCEDURE: DC REVASCULARIZATION ILIAC ARTERY ANGIOP 1ST VSL OTHER SURGICAL HISTORY 03/27/2022 PROCEDURE: DC REVSC OPN/PRG FEM/POP W/ANGIOPLASTY UNI OTHER SURGICAL HISTORY 03/27/2022 PROCEDURE: ULTRASOUND GUIDANCE FOR VASCULAR AC OTHER SURGICAL HISTORY 05/02/2022 Right PROCEDURE: DC TEAEC W/GRAFT POPLITEAL ARTERY OTHER SURGICAL HISTORY 07/30/2023 PROCEDURE: DC SLCTV CATHJ EA 1ST ORD ABDL PEL/LXTR ART BRNCH OTHER SURGICAL HISTORY 07/30/2023 PROCEDURE: X-RAY EXAM OF ARM/LEG ARTERY; COMMENT: X2 OTHER SURGICAL HISTORY 07/30/2023 PROCEDURE: ULTRASOUND GUIDANCE FOR VASCULAR AC OTHER SURGICAL HISTORY 07/31/2023 Left PROCEDURE: DC BYP OTH/THN VEIN ILIOFEMORAL OTHER SURGICAL HISTORY 07/31/2023 PROCEDURE: DC ROPRTJ > 1 MO AFTER ORIGINAL OPRATION OTHER SURGICAL HISTORY 09/04/2023 PROCEDURE: DC EXCISION INFECTED GRAFT ABDOMEN OTHER SURGICAL HISTORY 09/04/2023 PROCEDURE: DC RPR BLOOD VESSEL DIRECT LOWER EXTREMITY OTHER SURGICAL HISTORY 09/04/2023 PROCEDURE: DC OMENTAL FLAP INTRA-ABDOMINAL OTHER SURGICAL HISTORY 09/04/2023 PROCEDURE: DC INSERTION DRUG DELIVERY IMPLANT Medical History Medical History Date Comments Diabetes mellitus ([facility] V 24, [facility] V28) DX:Diabetes mellitus (HCC) Peripheral vascular disease ([facility] V24) DX:Peripheral vascular disea se (HCC) Type 2 diabetes mellitus (CM S/HCC V24, [facility] V28) 08/11/2021 DX:Type 2 diabetes mellitus (HCC) [...] on file Sexual Orientation Not on file Last Filed Vital Signs Vital Sign Reading Time Taken Comments Blood Pressure 125/74 05/03/2025 8:58 AM EST Pulse 72 05/03/2025 8:58 AM EST Temperature 36.1 C (96.9 F) 03/31/2025 8:41 AM EST Respiratory Rate 16 03/19/2025 8:21 AM EDT Oxygen Saturation 100% 03/18/2025 8:53 AM EDT Inhaled Oxygen Concentration - - Weight 62.1 kg (137 lb) 05/03/2025 8:58 AM EST Height 168.9 cm (5' 6.5 ) 03/31/2025 8:41 AM EST Body Mass Index 21.78 03/31/2025 8:41 AM EST Plan of Treatment Upcoming Encounters Date Type Department Care Team (Late st Contact Info) Description 05/18/2025 9:00 AM EST Appointment [facility] CT Scan [address] [place] [address] 06/17/2025 9:15 AM EST Office Visit [facility] Hematology Oncology [address] [place] [phone] Ward Skinner MD [address] [place] [address] 06/18/2025 8:30 AM EST Office Visit V[facility] [place] [address] [place] [phone] Gaston Bangura MD [address] [place] [phone] 11/01/2025 9:00 AM EDT Office Visit Endocrinology [facility] [address] [place] [phone] Anisha Mortensen MD [address] [place] [address] Health Maintenance Due Date Last Done Comments [...] neuropathy, with long-term current use of insulin ([facility] V24, [facility] V28) LIPID PANEL WITH REFLEX TO DIRECT LDL Routine 03/26/2025 8:53 AM EDT Type 2 diabetes mellitus with diabetic neuropathy, with long-term current use of insulin ([facility] V24, CMS/[facility] V28) Hyperlipidemia, unspecified hyperlipidemia type HEMOGLOBIN A1C Routine 03/26/2025 8:53 AM EDT Type 2 diabetes mellitus with diabetic neuropathy, with long-term current use of insulin ([facility] V24, [facility] V28) COMPREHENSIVE METABOLIC PANEL Routine 03/26/2025 8:53 AM EDT Type 2 diabetes mellitus with diabetic neuropathy, with long-term current use of insulin ([facility] V24, [facility] V28) CT LUNG SCREENING Routine 03/12/2025 7:1 4 AM EDT Encounter for screening for malignant neoplasm of respiratory organs Nicotine dependence, cigarettes, uncomplicated VAS US DUPLEX LOWER EXT ARTERIES BILAT WITH ZAY Routine 03/02/2025 9:43 AM EDT PAD (peripheral artery disease) ([facility] V24) CBC WITH AUTO DIFFERENTIAL Routine 02/26/2025 9:18 AM EDT Erythrocytosis RETICULOCYTE COUNT Routine 02/26/2025 9: 18 AM EDT Erythrocytosis ERYTHROPOIETIN Routine 02/26/2025 9:18 AM EDT Erythrocytosis CBC AND DIFFERENTIAL Routine 02/26/2025 9:18 AM EDT Erythrocytosis JAK2 GENE, V617F MUTATION, QUANTITATIVE, MOLECULAR STUDY Routine 02/26/2025 9:18 AM EDT Erythrocytosis HEPATITIS C ANTIBODY Routine 04/03/2024 9:30 AM EST Hyperlipidemia Hypertension Type 2 diabetes mellitus ([facility] V24, CMS/[facility] V28) Routine general medical examination at a [facility] care facility DEPRESSION SCREENING Routine 01/08/2024 FALLS RISK ASSESSMENT Routine 01/08/2024 DIABETES EYE EXAM Routine 01/08/2024 DIABETES FOOT EXAM Routine 01/08/2024 from Last 3 Months or Most Recently Relevant to Health Maintenance Results * (ABNORMAL) Lipid panel with reflex to direct LDL (03/26/2025 8:53 AM EDT) Cholesterol 219(H) 0 - 200 mg/dL LAB CHEMISTRY METHOD 03/26/2025 12:48 PM EDT [facility] Triglycerides 114 0 - 150 mg/dL LAB CHEMISTRY METHOD 03/26/2025 12:48 PM EDT [facility] HDL 56 >=40 mg/dL LAB CHEMISTRY METHOD 03/26/2025 12:48 PM EDT [facility] LDL Calculated 140(H) 0 - 100 mg/dL LAB CHEMISTRY METHOD 03/26/2025 12:48 PM EDT [facility] Comment:Estimated LDL Calcul ated using equation: Total cholesterol - HDL cholesterol - (Triglycerides/5) VLDL Cholesterol Ray 22.8 mg/dL LAB CHEMISTRY METHOD 03/26/2025 12:48 PM EDT [facility] Non HDL Chol. (LDL+VLDL) 163(H) <145 mg/dL LAB CHEMISTRY METHOD 03/26/2025 12:48 PM EDT [facility] Chol/HDL Ratio 3.9 0.0 - 4.4 LAB CHEMISTRY METHOD 03/26/2025 12:48 PM EDT [facility] Blood Venous blood specimen / Unknown Venipuncture / Unknown 03/26/2025 8:53 AM EDT 03/26/2025 8:53 AM EDT us Evie Perez MD LAB BLOOD ORDERABLES Final Result [facility] [address] [place] [address], [place] [phone] * (ABNORMAL) Microalbumin creatinine urine ratio (03/26/2025 8:53 AM EDT) Creatinine, Urine 28.0 mg/dL LAB CHEMISTRY METHOD 03/26/2025 12:45 PM EDT [facility] Microalb, Ur 14.1 0.0 - 29.0 mg/L LAB CHEMISTRY METHOD 03/26/2025 12:45 PM EDT [facility] Microalb/Creat Ratio 50(H) <30 mg/g creat LAB CHEMISTRY METHOD 03/26/2025 12:45 PM EDT [facility] Urine Urine specimen obtained by clean catch procedure / Unknown Non-blood Collection / Unknown 03/26/2025 8:53 AM EDT 03/26/2025 8:53 AM EDT Evie Perez MD LAB URINE ORDERABLES Final Result [facility] [address] [place] [address], [place] [phone] * Hemoglobin A1c (03/26/2025 8:53 AM EDT) [facility] Hemoglobin A1C 6.4 <6.5 % LAB CHEMISTRY METHOD 03/26/2025 1:23 PM EDT [facility] Mean Bld Glu Estim. 137 mg/dL LAB CHEMISTRY METHOD 03/26/2025 1:23 PM EDT [facility] Blood Venous blood specimen / Unknown Venipuncture / Unknown 03/26/2025 8:53 AM EDT 03/26/2025 8:53 AM EDT Evie Perez MD LAB BLOOD ORDERABLES Final Result Performing Organization Address City/[facility]/ZIP Co de Phone Number [facility] [address] [place] [address], [place] [phone] * (ABNORMAL) Comprehensive metabolic panel (03/26/2025 8:53 AM EDT) [facility] Signature Sodium 136 133 - 145 mmol/L LAB CHEMISTRY METHOD 03/26/2025 12:48 PM [facility] Potassium 4.6 3.5 - 5.5 mmol/L LAB CHEMISTRY METHOD 03/26/2025 12:48 PM [facility] Chloride 101 96 - 110 mmol/L LAB CHEMISTRY METHOD 03/26/2025 12:48 PM [facility] CO2 30 21 - 32 mmol/L LAB CHEMISTRY METHOD 03/26/2025 12:48 PM [facility] Anion Gap 5 3 - 11 LAB CHEMISTRY METHOD 03/26/2025 12:48 PM [facility] Glucose 129(H) 70 - 100 mg/dL LAB CHEMISTRY METHOD 03/26/2025 12:48 PM [facility] BUN 8 5 - 25 mg/dL LAB CHEMISTRY METHOD 03/26/2025 12:48 PM [facility] Creatinine 0.78 0.50 - 1.10 mg/dL LAB CHEMISTRY METHOD 03/26/2025 12:48 PM [facility] eGFR 82 >=60 mL/min/1. 73m2 LAB CHEMISTRY METHOD 03/26/2025 12:48 PM [facility] Comment:Calculation based on the Chronic Kidney Disease Epidemiology Collaboration (CKD-EPI) equation refit without adjustment for race. BUN/Creatinine Ratio 10.3 LAB CHEMISTRY METHOD 03/26/2025 12:48 PM [facility] Calcium 9.3 8.5 - 10.5 mg/dL LAB CHEMISTRY METHOD 03/26/2025 12:48 PM [facility] AST (SGOT) 7(L) 10 - 42 unit/L LAB CHEMISTRY METHOD 03/26/2025 12:48 PM [facility] ALT (SGPT) 14 10 - 60 unit/L LAB CHEMISTRY METHOD 03/26/2025 12:48 PM EDT [facility] Alkaline Phosphatase 62 42 - 121 unit/L LAB CHEMISTRY METHOD 03/26/2025 12:48 PM EDT [facility] Total Protein 6.5 6.0 - 8.0 g/dL LAB CHEMISTRY METHOD 03/26/2025 12:48 PM EDT [facility] Albumin 3.7 3.2 - 5.0 g/dL LAB CHEMISTRY METHOD 03/26/2025 12:48 PM EDT [facility] Total Bilirubin 0.3 0.0 - 1.4 mg/dL LAB CHEMISTRY METHOD 03/26/2025 12:48 PM EDT [facility] Blood Venous blood specimen / Unknown Venipuncture / Unknown 03/26/2025 8:53 AM EDT 03/26/2025 8:53 AM EDT us Evie Perez MD LAB BLOOD ORDERABLES Final Result [facility] [address] [place] [address], * CT Lung Screening (03/12/2025 7:14 AM [...] Signed Date: 03/18/2025 09:40 ET Workstation ID: [id number] Transcribed By: Self Edit Transcribed Date: 03/18/2025 [...] Signed Date: 03/18/2025 09:40 ET Workstation ID: [id number] Transcribed By: Self Edit Transcribed Date: 03/18/2025 [...] PSV 13 cm/s CV VAS LAB Left [employer]LYT[employer]ACULTY MEMBER prox sys PSV 19 cm/s CV VAS [...] PSV 56 cm/s CV VAS LAB Right [employer]NA[employer]AC[employer] MEMBER prox sys PSV 220 cm/s CV VAS [...] increased velocity without evidence of stenosis. Right [employer] ANALYT[employer] FACULT[employer] MEMBER has 50 to 99% (close to 50%) [...] left femoral to popliteal graft present: proximal aonybgvwfcl=562.3cm/s (monophasic turbulent flow) proximal= occluded mid= occluded [...] mid peroneal artery has blunted monophasic flow. Windows Architect Details A davenport scale, color and doppler analysis ultrasound was performed. During the study longitudinal and transverse views were obtained. Pulsed wave doppler was performed. us Gaston Bangura MD CV VASCULAR PROCEDURES Final Re sult * (ABNORMAL) JAK2 gene, V617F mutation, quantitative, molecular study (02/26/2025 9:18 AM EDT) Pathologist [facility] JAK2 (V617F) Mutation DETECTED( A) Not detected 03/05/2025 1:19 PM EDT [facility] WBC Percent with V617F Mutation 0.6(H) <0.1 % 03/05/2025 1:19 PM EDT [facility] Comment: This procedure uses real-time polymerase [...] characteristics of this procedure were determined by [facility]. This test is performed pursuant to a license agreement with [employer] Test performed at [facility], [address] , [place] [address] Mary Emanuel MD, PhD - Aircraft Launch And Recovery Technician Blood Venous blood specimen / Unknown Venipuncture / Unknown 02/26/2025 9:18 AM EDT 02/26/2025 11:30 AM EDT Ward Skinner MD LAB MOLECULAR DIAGNOSTICS OR DERABLES Final Result [facility] [address] [place] [address] * (ABNORMAL) CBC auto differential (02/26/2025 9:18 AM EDT) Pathologist [facility] WBC 9.9 4.8 - 10.8 K/[facility] LAB HEMETOLOGY METHOD 02/26/2025 11:40 AM EDT [facility] RBC 5.90(H) 3.80 - 4.80 M/[facility] LAB HEMETOLOGY METHOD 02/26/2025 11:40 AM [facility] Hemoglobin 17.3(H) 11.5 - 16.0 g/dL LAB HEMETOLOGY METHOD 02/26/2025 11:40 AM [facility] Hematocrit 54.2(H) 35.0 - 47.0 % LAB HEMETOLOGY METHOD 02/26/2025 11:40 AM [facility] MCV 92.5 79.0 - 98.0 FL LAB HEMETOLOGY METHOD 02/26/2025 11:40 AM [facility] MCH 29.5 27.0 - 32.0 pcg LAB HEMETOLOGY METHOD 02/26/2025 11:40 AM [facility] MCHC 31.9(L) 32.0 - 37.0 g/dL LAB HEMETOLOGY METHOD 02/26/2025 11:40 AM [facility] RDW 14.7 11.0 - 15.0 % LAB HEMETOLOGY METHOD 02/26/2025 11:40 AM [facility] Platelets 379 130 - 400 K/[facility] LAB HEMETOLOGY METHOD 02/26/2025 11:40 AM [facility] MPV 10.9 7.0 - 11.0 FL LAB HEMETOLOGY METHOD 02/26/2025 11:40 AM [facility] NRBC 0.0 <1.0 % LAB HEMETOLOGY METHOD 02/26/2025 11:40 AM [facility] NRBC Absolute 0.00 <0.10 K/mcL LAB HEMETOLOGY METHOD 02/26/2025 11:40 AM [facility] Neutrophils Relative 68.3 % LAB HEMETOLOGY METHOD 02/26/2025 11:40 AM [facility] Lymphocytes Relative 20.7 % LAB HEMETOLOGY METHOD 02/26/2025 11:40 AM [facility] Monocytes Relative 8.5 % LAB HEMETOLOGY METHOD 02/26/2025 11:40 AM [facility] Eosinophils Relative 1.0 % LAB HEMETOLOGY METHOD 02/26/2025 11:40 AM [facility] Basophils Relative 1.3 % LAB HEMETOLOGY METHOD 02/26/2025 11:40 AM [facility] Immature Granulocytes Relative 0.2 % LAB HEMETOLOGY METHOD 02/26/2025 11:40 AM [facility] Neutrophils Absolute 6.74 1.50 - 7.00 K/mcL LAB HEMETOLOGY METHOD 02/26/2025 11:40 AM [facility] Lymphocytes Absolute 2.04 1.00 - 5.00 K/mcL LAB HEMETOLOGY METHOD 02/26/2025 11:40 AM [facility] Monocytes Absolute 0.84 0.20 - 1.00 K/mcL LAB HEMETOLOGY METHOD 02/26/2025 11:40 AM [facility] Eosinophils Absolute 0.10 0.00 - 0.50 K/mcL LAB HEMETOLOGY METHOD 02/26/2025 11:40 AM [facility] Basophils Absolute 0.13 0.00 - 0.20 K/mcL LAB HEMETOLOGY METHOD 02/26/2025 11:40 AM [facility] Immature Granulocytes Absolute 0.02 0.00 - 0.03 K/mcL LAB HEMETOLOGY METHOD 02/26/2025 11:40 AM [facility] Blood Venous blood specimen / Unknown Venipuncture / Unknown 02/26/2025 9:18 AM EDT 02/26/2025 11:30 AM EDT us Ward Skinner MD LAB BLOOD ORDERABLES Final R esult [facility] [address] [place] [address], * Erythropoietin (02/26/2025 9:18 AM EDT) Erythropoietin 5.3 2.6 - 18.5 mIU/mL 03/01/2025 7:46 PM EDT [facility] Comment: Test performed at [facility], [address], [place] [address] Mary Emanuel MD, PhD - Aircraft Launch And Recovery Technician Blood Venous blood specimen / Unknown Venipuncture / Unknown 02/26/2025 9:18 AM EDT 02/26/2025 11:30 AM EDT Ward Skinner MD LAB BLOOD ORDERABLES Final R esult Performing Organization Address City/[facility]/ZIP Co de Phone Number [facility] [address] [place] [address] * (ABNORMAL) Reticulocyte count (02/26/2025 9:18 AM EDT) Retic Ct Abs 0.110(H) 0.030 - 0.090 M/mcL LAB HEMETOLOGY METHOD 02/26/2025 11:40 AM EDT [facility] Retic Ct Pct 1.8(H) 0.7 - 1.7 % LAB HEMETOLOGY METHOD 02/26/2025 11:40 AM EDT [facility] Immature Retic Fract 10.7 2.3 - 15.9 % LAB HEMETOLOGY METHOD 02/26/2025 11:40 AM EDT [facility] Reticulocyte Hemoglobin 32.7 >29.0 pcg LAB HEMETOLOGY METHOD 02/26/2025 11:40 AM EDT [facility] Blood Venous blood specimen / Unknown Venipuncture / Unknown 02/26/2025 9:18 AM EDT 02/26/2025 11:30 AM EDT Ward Skinner MD LAB BLOOD ORDERABLES Final R esult Performing Organization Address City/[facility]/ZIP Co de Phone Number [facility] [address] [place] [address], [place] [phone] * Hepatitis C antibody (04/03/2024 9:30 AM EST) [facility] Hepatitis C Antibody Negative Negative LAB CHEMISTRY METHOD 04/03/2024 1:17 PM EST [facility] Blood Venous blood specimen / Unknown Venipuncture / Unknown 04/03/2024 9:30 AM EST 04/03/2024 9:30 AM EST Evie Perez MD LAB BLOOD ORDERABLES Final Result Performing Organization Address City/[facility]/ZIP Co de Phone Number [facility] [address] [place] [address], [place] [phone] * Falls Risk Assessment (01/08/2024) [facility] Falls Risk Assessment abstracted [facility] Provider HEALTH MAINTENANCE Final Result * Depression Screening (01/08/2024) [facility] Depression Screening abstracted [facility] Provider HEALTH MAINTENANCE Final Result * Diabetes Foot Exam (01/08/2024) [facility] Diabetes: Annual Foot Exam abstracted Historical Provider HEALTH MAINTENANCE Final Result * Diabetes Eye Exam (01/08/2024) [facility] Diabetes: Annual Retina Eye Exam abstracted Historical Provider HEALTH MAINTENANCE Final Result from Last 3 Months or Most Recently Relevant to Health Maintenance Insurance [employer] DOME[employer]ARE Care Teams Ordnance Artificer Relationship Specialty Start Date End Date Evie Perez MD [address] [place] [address] PCP - General 12/12/23
--- OUTSIDE RECORDS SUMMARY | 2025-05-17 12:47 | XMS_ITS | Encounter Summary ---
Author Organization [facility] Address [address] [place] [address] Care Team Providers Care Machine Binder Stripper Name Role Phone Evie Perez MD Primary Care Provider Encounter Details Date Type Department Care Team (Late Contact Info) Description 03/23/2025 Results Follow-Up Adult Medicine [facility] [place] [address] [place] [address] Evie Perez MD [address] [place] [address] Social History Tobacco Use Types Packs/Day Years [...] Department Care Team (Late Contact Info) Description 05/18/2025 9:00 AM EST Appointment [facility] CT Scan [address] [place] [id number] 06/17/2025 9:15 AM EST Office Visit [facility] Hematology Oncology [address] [place] [address] Ward Skinner MD [address] [place] [address] 06/18/2025 8:30 AM EST Office Visit V[facility] - [place] [address] [place] [phone] Gaston Bangura MD [address] [place] [phone] 11/01/2025 9:00 AM EDT Office Visit [facility]ocrin[facility] [place] [address] [place] [address] Anisha Mortensen MD [address], [place] documented as of this encounter Visit Diagnoses Not on filedocumented in this encounter Care Teams Machine Binder Stripper Relationship Specialty Start Date End Date Evie Perez MD [address], [place] PCP - General 12/12/23 documented as of this encounter
== END 2025-05-17 10:27 | disposition home or self-care (01) ==
LOC: HO.BBR 10:26
PROVIDERS: PCP Internal Medicine; Visit Provider Internal Medicine
DX: D45 Polycythemia vera (principal)
CPT/HCPCS: 85018